=== PATIENT | female | born 1950 | race Caucasian/White ===

== ENCOUNTER 2017-12-14 02:48 | Observation (INO) ==
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
[2017-12-14 03:06] LABS: Baso % (Auto) 0.2 % (0.0-2.0); Eos # (Auto) 0.2 th/mm3 (0.0-0.4); Eos % (Auto) 2.4 % (0.0-4.0); Hemoglobin 9.9 gm/dL (11.6-15.3); Lymph # (Auto) 1.4 th/mm3 (1.0-4.8); Lymph % (Auto) 14.4 % (9.0-44.0); Mean Corpuscular HGB Conc 31.8 % (32.0-36.0); Mean Corpuscular Hemoglobin 29.6 pg (27.0-34.0); Mean Corpuscular Volume 93.1 fL (80.0-100.0); Mean Platelet Volume 7.9 fL (7.0-11.0); Mono # (Auto) 0.8 th/mm3 (0.0-0.9); Mono % (Auto) 8.5 % (0.0-8.0); Neut # (Auto) 7.4 th/mm3 (1.8-7.7); Neut % (Auto) 74.5 % (16.0-70.0); Platelet Count 282 th/mm3 (150-450); Red Blood Count 3.34 mil/mm3 (4.00-5.30); Red Cell Distribution Width 14.8 % (11.6-17.2); White Blood Count 9.8 th/mm3 (4.0-11.0)
[2017-12-14 03:16] LABS: Chloride 105 meq/L (98-107); Potassium 4.3 meq/L (3.5-5.1); Sodium 139 meq/L (136-145)
[2017-12-14 03:19] LABS: Albumin 2.8 g/dL (3.4-5.0); Anion Gap 7 meq/L (5-15); Calcium 7.8 mg/dL (8.5-10.1); Carbon Dioxide 27.5 meq/L (21.0-32.0); Glucose,Random 238 mg/dL (74-106); Magnesium 2.2 mg/dL (1.5-2.5)
[2017-12-14 03:20] LABS: Blood Urea Nitrogen 46 mg/dL (7-18)
[2017-12-14 03:22] LABS: Alanine Aminotransferase 17 U/L (10-53)
[2017-12-14 03:23] LABS: Aspartate Aminotransferase 13 U/L (15-37); Glomerular Filtration Rate 30 mL/min (>89)
[2017-12-14 03:24] LABS: Total Protein 6.7 g/dL (6.4-8.2)
[2017-12-14 03:25] LABS: Alkaline Phosphatase 96 U/L (45-117)
[2017-12-14] MEDS ORDERED: Prochlorperazine 25 MG Supp RECTAL PRN (03:46)
[2017-12-14] MEDS ORDERED: Acetaminophen 325 MG Tablet PO PRN (03:46)
[2017-12-14] MEDS ORDERED: Bisacodyl 10 MG Supp RECTAL PRN (03:46)
--- NOTE | 2017-12-14 04:35 | XR ---
EXAM DATE: 12/14/2017 2:50 AM EDT AGE/SEX: 67 years / Female INDICATIONS: Shortness of breath. CLINICAL DATA: This is the patient's initial encounter. Patient reports that signs and symptoms have been present for 1 day and indicates a pain score of 0/10. MEDICAL/SURGICAL HISTORY: Chronic obstructive pulmonary disease. None. COMPARISON: No prior exams available for comparison. FINDINGS: The cardiac silhouette is enlarged in transverse diameter. There are findings of congestive heart shree lure with interstitial and alveolar opacity bilaterally. A small right sided effusion is present. CONCLUSION: Cardiomegaly and findings of congestive heart failure. Electronically signed by: Logan Garcia MD 12/14/2017 4:33 AM EDT
[2017-12-14] MEDS ORDERED: MethylPREDNISolone Sod Succinate Inj 40 MG/ML Vial IV.PUSH SCH (10:00)
[2017-12-14] MEDS ORDERED: Dextrose 50% in Water 50 ML Vial IV.PUSH PRN (11:16)
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
[2017-12-14] MEDS: Insulin NovoLOG Aspart Correctional Sugar Inj SQ SCH ×3 (12:52→20:58)
[2017-12-14] MEDS: hydrALAZINE 25 MG Tablet PO PRN ×2 (14:28→20:56)
--- NOTE | 2017-12-14 15:49 | ECG ---
Date Performed: 12/14/2017 Time Performed: 03:13:20 PTAGE: 67 years EKG: SINUS TACHYCARDIA POSSIBLE ANTERIOR MYOCARDIAL INFARCTION ABNORMAL RHYTHM ECG NO PREVIOUS TRACING DOCTOR: Yossi Min Interpretating Date/Time 12/14/2017 15:47:36
--- NOTE | 2017-12-14 18:21 | ECHRPT ---
Indication: Shortness of Breath CONCLUSIONS Normal left ventricular size. Mild concentric left ventricular hypertrophy. The left ventricular systolic function is low normal with an estimated ejection fraction in the rang e of 50- 55%. The left atrial size is moderately dilated. Mild mitral valve regurgitation. Mitral annular calcification is present. Aortic valve sclerosis is present. There is mild tricuspid valve regurgitation. The estimated pulmonary arterial pressure is 56 mmHg. The inferior vena cava is mildly dilated. BP: / HR: Rhythm: MEASUREMENTS (Male / Female) Normal Values Technical Quality:Technically difficult study 2D ECHO LV Diastolic Diameter PLAX 4.6 cm 4.2 - 5.9 / 3.9 - 5.3 cm LV Systolic Diameter PLAX 3.6 cm IVS Diastolic Thickness 1.1 cm 0.6 - 1.0 / 0.6 - 0.9 cm LVPW Diastolic Thickness 1.2 cm 0.6 - 1.0 / 0.6 - 0.9 cm LV Relative Wall Thickness 0.5 RV Internal Dim ED PLAX 3.4 cm LVOT Diameter 1.9 cm Aortic Root Diameter 2.7 cm LA Systolic Diameter LX 4.9 cm 3.0 - 4.0 / 2.7 - 3.8 cm DOPPLER AV Peak Velocity 218.0 cm/s AV Peak Gradient 19.0 mmHg AV Mean Gradient 8.0 mmHg AV Velocity Time Integral 45.8 cm LVOT Peak Velocity 146.0 cm/s LVOT Peak Gradient 8.5 mmHg AV Area Cont Eq pk 1.9 cm Mitral E Point Velocity 173.0 cm/s Mitral A Point Velocity 89.1 cm/s Mitral E to A Ratio 1.9 LV E' Lateral Velocity 7.2 cm/s Mitral E to LV E' Lateral Ratio 24.0 LV E' Septal Velocity 8.5 cm/s Mitral E to LV E' Septal Ratio 20.4 TR Peak Velocity 339.0 cm/s TR Peak Gradient 46.0 mmHg Right Atrial Pressure 10.0 mmHg Pulmonary Artery Systolic Pressu 56.0 mmHg Right Ventricular Systolic Press 56.0 mmHg PV Peak Velocity 140.0 cm/s PV Peak Gradient 7.8 mmHg FINDINGS LEFT VENTRICLE Normal left ventricular size. Mild concentric left ventricular hypertrophy. The left ventricular systolic function is low normal with an estimated ejection fraction in the rang e of 50- 55%. RIGHT VENTRICLE Normal right ventricular size and systolic function. LEFT ATRIUM The left atrial size is moderately dilated. RIGHT ATRIUM The right atrial size is normal. ATRIAL SEPTUM Normal atrial septal thickness without atrial level shunting by limited color doppler interrogation. AORTA The aortic root and proximal ascending aorta are normal in size on limited imaging. MITRAL VALVE Mild mitral valve regurgitation. Severe mitral annular calcification is present. AORTIC VALVE Trileaflet aortic valve. Aortic valve sclerosis is present. TRICUSPID VALVE There is mild tricuspid valve regurgitation. The estimated pulmonary arterial pressure is 56 mmHg. PULMONARY VALVE No pulmonary valve regurgitation or stenosis. VESSELS The inferior vena cava is mildly dilated. PERICARDIUM No pericardial effusion. Melvin Colbert MD (Electronically Signed) Final Date:14 December 2017 18:20
[2017-12-14] MEDS: Metoprolol Tartrate 25 MG Tablet PO SCH (20:56)
[2017-12-14] MEDS: Insulin Detemir Inj 1,000 UNIT/10 ML Vial SQ SCH (20:57)
[2017-12-14] MEDS ORDERED: Potassium Chloride 10 MEQ ER Capsule PO SCH (21:00)
[2017-12-15 07:30] LABS: Baso % (Auto) 0.3 % (0.0-2.0); Eos # (Auto) 0.2 th/mm3 (0.0-0.4); Eos % (Auto) 1.8 % (0.0-4.0); Hematocrit 27.4 % (35.0-46.0); Hemoglobin 9.5 gm/dL (11.6-15.3); Lymph # (Auto) 1.4 th/mm3 (1.0-4.8); Lymph % (Auto) 16.2 % (9.0-44.0); Mean Corpuscular HGB Conc 34.7 % (32.0-36.0); Mean Corpuscular Hemoglobin 31.3 pg (27.0-34.0); Mean Corpuscular Volume 90.4 fL (80.0-100.0); Mean Platelet Volume 8.3 fL (7.0-11.0); Mono # (Auto) 0.7 th/mm3 (0.0-0.9); Mono % (Auto) 7.9 % (0.0-8.0); Neut # (Auto) 6.6 th/mm3 (1.8-7.7); Neut % (Auto) 73.8 % (16.0-70.0); Platelet Count 272 th/mm3 (150-450); Red Blood Count 3.03 mil/mm3 (4.00-5.30); Red Cell Distribution Width 15.2 % (11.6-17.2); White Blood Count 8.9 th/mm3 (4.0-11.0)
[2017-12-15 07:46] LABS: Chloride 106 meq/L (98-107); Potassium 4.7 meq/L (3.5-5.1); Sodium 141 meq/L (136-145)
[2017-12-15 07:50] LABS: Calcium 8.5 mg/dL (8.5-10.1)
[2017-12-15 07:51] LABS: Albumin 2.8 g/dL (3.4-5.0); Anion Gap 4 meq/L (5-15); Carbon Dioxide 31.1 meq/L (21.0-32.0)
[2017-12-15] MEDS: Insulin NovoLOG Aspart Correctional Sugar Inj SQ SCH ×4 (07:52→21:06)
[2017-12-15 08:05] LABS: Alanine Aminotransferase 13 U/L (10-53); Alkaline Phosphatase 77 U/L (45-117); Aspartate Aminotransferase 7 U/L (15-37); Blood Urea Nitrogen 50 mg/dL (7-18); Glomerular Filtration Rate 32 mL/min (>89); Glucose,Random 129 mg/dL (74-106); Total Protein 6.7 g/dL (6.4-8.2)
[2017-12-15] MEDS: Metoprolol Tartrate 25 MG Tablet PO SCH ×2 (08:25→21:08)
--- NOTE | 2017-12-15 09:53 | P.PNIM ---
Subjective Interval history: f/u; CHF in no acute distress. says that her sob and leg swelling has much improved. wants to go home today. no new complaints. Physical Exam Vital signs: Vital Signs 12/14/17 11:18 12/14/17 12:00 12/14/17 12:55 Temperature 98.1 F Pulse Rate 85 78 82 Respiratory Rate 16 15 28 H Blood Pressure 202/90 H 191/80 H Pulse Oximetry 99 97 12/14/17 13:00 12/14/17 13:20 12/14/17 14:00 Temperature Pulse Rate 82 78 80 Respiratory Rate 26 H 20 31 H Blood Pressure 190/75 H 166/87 H 196/91 H Pulse Oximetry 97 98 100 12/14/17 15:00 12/14/17 15:23 12/14/17 16:00 Temperature 97.8 F Pulse Rate 82 91 H Respiratory Rate 16 20 Blood Pressure 196/97 H Pulse Oximetry 98 97 12/14/17 20:00 12/14/17 20:30 12/15/17 00:00 Temperature 96.6 F L 96.9 F L Pulse Rate 84 83 72 Respiratory Rate 18 20 18 Blood Pressure 189/89 H 169/73 H Pulse Oximetry 98 97 95 12/15/17 07:51 Temperature Pulse Rate 78 Respiratory Rate 15 Blood Pressure Pulse Oximetry 94 L Intake & Output 12/14/17 12/15/17 12/15/17 18:59 06:59 18:59 Intake Total 960 / 960 120 / 120 Output Total 2850 / 2850 Balance -1890 / -1890 120 / 120 Weight 102.058 kg Intake: Oral 960 / 960 120 / 120 Output: Urine 2850 / 2850 Other: # Voids 4 Date of Last Bowel Movement 12/14/17 12/14/17 Weight On Admission 107.048 kg - Constitutional no acute distress - Routine Respiratory Exam Present: CTA bilaterally - Routine Cardiovascular Exam Present: RRR - Routine Abdominal Exam Present: soft - Routine Extremities Exam Comments: bilateral pedal edema. - Routine Neurological Exam Present: alert, oriented X3 Results - Labs CBC & Chem 7: 12/15/17 06:45 12/15/17 06:45 Laboratory Results - last 24 hr 12/14/17 12/14/17 12/14/17 12:25 16:32 20:49 CBC w Diff WBC RBC Hgb Hct MCV MCH MCHC RDW Plt Count MPV Neut % (Auto) Lymph % (Auto) [place] % (Auto) Eos % (Auto) Baso % (Auto) Neut # (Auto) Lymph # (Auto) [place] # (Auto) Eos # (Auto) Baso # (Auto) WBC Differential Differential Comment Sodium Potassium Chloride Carbon Dioxide Anion Gap BUN Creatinine Estimated GFR POC Glucose 439 H 352 H 217 H Random Glucose Calcium Total Bilirubin AST ALT Alkaline Phosphatase Total Protein Albumin 12/15/17 12/15/17 12/15/17 06:45 06:45 07:41 CBC w Diff Auto diff final WBC 8.9 RBC 3.03 L Hgb 9.5 L Hct 27.4 L MCV 90.4 MCH 31.3 MCHC 34.7 RDW 15.2 Plt Count 272 MPV 8.3 Neut % (Auto) 73.8 H Lymph % (Auto) 16.2 [place] % (Auto) 7.9 Eos % (Auto) 1.8 Baso % (Auto) 0.3 Neut # (Auto) 6.6 Lymph # (Auto) 1.4 [place] # (Auto) 0.7 Eos # (Auto) 0.2 Baso # (Auto) 0.0 WBC Differential . Differential Comment . Sodium 141 Potassium 4.7 Chloride 106 Carbon Dioxide 31.1 Anion Gap 4 L BUN 50 H Creatinine 1.60 H Estimated GFR 32 L POC Glucose 161 H Random Glucose 129 H D Calcium 8.5 Total Bilirubin 0.4 AST 7 L ALT 13 Alkaline Phosphatase 77 Total Protein 6.7 Albumin 2.8 L Assessment and Plan - Assessment (1) Acute exacerbation of congestive heart failure Code(s): I50.9 - Heart failure, unspecified Status: Acute - Plan Acute diastolic CHF Chest x-ray noted with finding of Cardiomegaly and findings of congestive heart failure Patient is currently on Lasix 20 mg IV every 12 hours, add potassium replacement echo with EF 50-55% with mild LVH Hypertension resume lisinopril Diabetes type 2 Labile Blood Glucose resume oral antihyperglycemic agents upon discharge. hemoglobin A1c pending. Chronic kidney disease stage III Continue to monitor BUN and creatinine COPD- with no exacerbation patient has nebulizer at home and is on home oxygen. DVT prophylaxis:B-SCD Discharge Planning: possible later this evening if stable with improved BP.
[2017-12-15] MEDS ORDERED: Lisinopril 10 MG Tablet PO SCH (10:00)
[2017-12-15] MEDS: hydrALAZINE 25 MG Tablet PO PRN (16:43)
[2017-12-15 17:57] LABS: Hemoglobin A1c 5.7 % (4.3-6.0)
[2017-12-15] MEDS: Insulin Detemir Inj 1,000 UNIT/10 ML Vial SQ SCH (21:08)
[2017-12-16 00:46] VITALS: BP 108/58; TEMP 96
[2017-12-16 06:21] VITALS: PULSE 59; RESP 18; O2SAT 99
--- NOTE | 2017-12-16 07:44 | P.PNIM ---
Subjective Interval history: f/u; CHF in no acute distress. says that sob is improving. no new complaints. BP trend noted. Physical Exam Vital signs: Vital Signs 12/15/17 07:51 12/15/17 08:00 12/15/17 12:00 Temperature 98.6 F 97 F L Pulse Rate 78 72 71 Respiratory Rate 15 20 20 Blood Pressure 155/67 H 156/70 H Pulse Oximetry 94 L 97 93 L 12/15/17 16:00 12/15/17 19:53 12/15/17 20:00 Temperature 96.8 F L 97.9 F Pulse Rate 66 74 73 Respiratory Rate 20 16 20 Blood Pressure 174/72 H 152/85 H Pulse Oximetry 92 L 92 L 92 L 12/16/17 00:00 12/16/17 06:19 Temperature 96 F L Pulse Rate 62 59 L Respiratory Rate 20 18 Blood Pressure 108/58 L Pulse Oximetry 98 99 Intake & Output 12/15/17 12/16/17 12/16/17 18:59 06:59 18:59 Intake Total 480 / 480 490 / 490 Balance 480 / 480 490 / 490 Weight 103.1 kg Intake: Oral 480 / 480 490 / 490 Other: # Voids 4 7 Date of Last Bowel Movement 12/14/17 # Bowel Movements 0 - Constitutional no acute distress - Routine Respiratory Exam Present: CTA bilaterally - Routine Cardiovascular Exam Present: RRR - Routine Abdominal Exam Present: soft - Routine Extremities Exam Comments: bilateral pedal edema. - Routine Neurological Exam Present: alert, oriented X3 Results - Labs CBC & Chem 7: 12/15/17 06:45 12/15/17 06:45 Laboratory Results - last 24 hr 12/15/17 12/15/17 12/15/17 06:45 06:45 06:45 Sodium 141 Potassium 4.7 Chloride 106 Carbon Dioxide 31.1 Anion Gap 4 L BUN 50 H Creatinine 1.60 H Estimated GFR 32 L POC Glucose Random Glucose 129 H D Hemoglobin A1c 5.7 Calcium 8.5 Total Bilirubin 0.4 AST 7 L ALT 13 Alkaline Phosphatase 77 B-Natriuretic Peptide 1035 H Total Protein 6.7 Albumin 2.8 L 12/15/17 12/15/17 12/15/17 07:41 11:16 16:45 Sodium Potassium Chloride Carbon Dioxide Anion Gap BUN Creatinine Estimated GFR POC Glucose 161 H 198 H 184 H Random Glucose Hemoglobin A1c Calcium Total Bilirubin AST ALT Alkaline Phosphatase B-Natriuretic Peptide Total Protein Albumin 12/15/17 21:06 Sodium Potassium Chloride Carbon Dioxide Anion Gap BUN Creatinine Estimated GFR POC Glucose 130 H Random Glucose Hemoglobin A1c Calcium Total Bilirubin AST ALT Alkaline Phosphatase B-Natriuretic Peptide Total Protein Albumin - Procedures none. Assessment and Plan - Assessment (1) Acute exacerbation of congestive heart failure Code(s): I50.9 - Heart failure, unspecified Status: Acute - Plan Acute diastolic CHF- improved. Chest x-ray noted with finding of Cardiomegaly and findings of congestive heart failure Patient is currently on Lasix 20 mg IV every 12 hours, add potassium replacement echo with EF 50-55% with mild LVH Hypertension- BP better resumed lisinopril Diabetes type 2 Labile Blood Glucose resume oral antihyperglycemic agents upon discharge. hemoglobin A1c 5.7. Chronic kidney disease stage III Continue to monitor BUN and creatinine COPD- with no exacerbation patient has nebulizer at home and is on home oxygen. Anemia- NCNC- f/u as outpatient and this was d/w the patient prior to discharge. DVT prophylaxis:B-SCD Discharge Planning: dc home today. f/u;pcp. see med list. d/w the patient. case management for [facility].
--- NOTE | 2017-12-16 07:45 | P.DCO ---
- Home Health Nursing Order: Medical education, Signs/symptoms of disease process, CHF education, Medication education-adverse effect, Nursing assessment with vital signs - Case Management Consult Yes - Certification I have seen patient Marcela Carlson on 12/16/17. My clinical findings support the need for the requested home health care services because: Patient has SOB I certify that my clinical findings support that this patient is homebound because: Poor cardiac reserve
--- NOTE | 2017-12-16 07:48 | P.DS ---
Date of admission: 12/14/17 03:46 Primary care physician: No Primary Care Physician Brief History from admission: 67-year-old female with history of congestive heart failure, diabetes type 2, tobacco abuse presented to the ED yesterday for evaluation of worsening shortness of breath over the past several days, as well as orthopnea. Patient also reported dry cough. She states that 3 weeks ago she was prescribed Lasix by her direct sales representative and is currently on 20 mg daily. However over the past several days patient states she has been quite dyspneic at night requiring more pillows. She denies any chest pain. Occasionally she has been wheezing but no febrile episode. She was prescribed oxygen's as needed about a month ago. Patient smokes 1 pack/day. In the ED she was found to have elevated BNP of 555. She has no GI bleed. DS: Diagnosis - Discharge Diagnosis (1) Acute exacerbation of congestive heart failure Status: Acute DS: Medications - Discharge Medications Prescriptions: lisinopril [Prinivil] 10 mg PO DAILY 30 Days #30 tab potassium chloride 20 meq PO DAILY 30 Days #60 cap DS: Summary Hospital Course: patient was admitted with acute diastolic CHF. she was started on IV diuretics. her sob improved. she will continue on her home lasix -however the dose will be increased to 40 mg daily. she has anemia that needs to be followed up as outpatient ans this was d/w the patient. she will be discharged home with HHC and f/u with her pcp. - Time Spent with Patient Total time spent providing and/or coordinating discharge services: Less than 30 minutes - Quality: VTE Deep Vein Thrombosis/Pulmonary Embolism Present on Admission: No Exam Vital signs: Vital Signs 12/15/17 07:51 12/15/17 08:00 12/15/17 12:00 Temperature 98.6 F 97 F L Pulse Rate 78 72 71 Respiratory Rate 15 20 20 Blood Pressure 155/67 H 156/70 H Pulse Oximetry 94 L 97 93 L 12/15/17 16:00 12/15/17 19:53 12/15/17 20:00 Temperature 96.8 F L 97.9 F Pulse Rate 66 74 73 Respiratory Rate 20 16 20 Blood Pressure 174/72 H 152/85 H Pulse Oximetry 92 L 92 L 92 L 12/16/17 00:00 12/16/17 06:19 Temperature 96 F L Pulse Rate 62 59 L Respiratory Rate 20 18 Blood Pressure 108/58 L Pulse Oximetry 98 99 Intake & Output 12/15/17 12/16/17 12/16/17 18:59 06:59 18:59 Intake Total 480 / 480 490 / 490 Balance 480 / 480 490 / 490 Weight 103.1 kg Intake: Oral 480 / 480 490 / 490 Other: # Voids 4 7 Date of Last Bowel Movement 12/14/17 # Bowel Movements 0 - Constitutional no acute distress - Routine Respiratory Exam Present: CTA bilaterally - Routine Cardiovascular Exam Present: RRR - Routine Abdominal Exam Present: soft - Routine Extremities Exam Comments: bilateral pedal edema. - Routine Neurological Exam Present: alert, oriented X3 Results Procedures completed during hospitalization: none. Labs on day of discharge: Labs from last 24 hours 12/16/17 12/15/17 12/15/17 07:42 21:06 16:45 Sodium Potassium Chloride Carbon Dioxide Anion Gap BUN Creatinine Estimated GFR POC Glucose 110 130 H 184 H Random Glucose Hemoglobin A1c Calcium Total Bilirubin AST ALT Alkaline Phosphatase B-Natriuretic Peptide Total Protein Albumin 12/15/17 12/15/17 12/15/17 11:16 06:45 06:45 Sodium 141 Potassium 4.7 Chloride 106 Carbon Dioxide 31.1 Anion Gap 4 L BUN 50 H Creatinine 1.60 H Estimated GFR 32 L POC Glucose 198 H Random Glucose 129 H D Hemoglobin A1c Calcium 8.5 Total Bilirubin 0.4 AST 7 L ALT 13 Alkaline Phosphatase 77 B-Natriuretic Peptide 1035 H Total Protein 6.7 Albumin 2.8 L 12/15/17 06:45 Sodium Potassium Chloride Carbon Dioxide Anion Gap BUN Creatinine Estimated GFR POC Glucose Random Glucose Hemoglobin A1c 5.7 Calcium Total Bilirubin AST ALT Alkaline Phosphatase B-Natriuretic Peptide Total Protein Albumin - Impressions ITS Impressions Chest X-Ray 12/14/17 02:50 CONCLUSION: Cardiomegaly and findings of congestive heart failure. Discharge Plan - Discharge Disposition Patient Disposition: Discharge Home - Discharge Condition Condition: Stable - Discharge Order Discharge Orders: Discharge Order (Routine); Ordered 12/16/17 Ordered By: Levi Brunson - Physicians Team Primary Care Provider: Primary Care Benjamin,Janice Attending Provider: Levi Brunson
== END 2017-12-16 09:20 | disposition home or self-care (01) ==
LOC: PHED 02:48 → PHEDA 02:48 → PHICU 05:18 → PH3 14:59
PROVIDERS: ADMIT Internal Medicine; ATTEND Internal Medicine
DX: I50.31 Acute diastolic (congestive) heart failure; D64.9 Anemia, unspecified; Z89.412 Acquired absence of left great toe; F17.200 Nicotine dependence, unspecified, uncomplicated; Z79.4 Long term (current) use of insulin; E83.51 Hypocalcemia; I13.0 Hypertensive heart and chronic kidney disease with heart failure and stage 1 through stage 4 chronic kidney disease, or unspecified chronic kidney disease; J44.1 Chronic obstructive pulmonary disease with (acute) exacerbation; E11.22 Type 2 diabetes mellitus with diabetic chronic kidney disease; Z99.81 Dependence on supplemental oxygen; N18.3 Chronic kidney disease, stage 3 (moderate)

== ENCOUNTER 2018-01-10 05:35 | Inpatient (IN) ==
--- NOTE | 2018-01-10 05:57 | ED ---
HPI General Chief Complaint: Respiratory Symptoms Stated Complaint: SOB Time Seen by Provider: 01/10/18 05:42 History of Present Illness HPI Narrative: Patient is a 67-year-old female who is got a history of COPD CHF renal insufficiency hypertension. Diabetes type 2, tobacco abuse presented to the ED yesterday for evaluation of worsening shortness of breath over the past several days, SHE WAS HERE LAST NIGHT WITH [facility] She is a smoker she comes to the ER twice in the last 12 hours and 3 times last 36 hours. She keeps coming back for shortness of breath she has a history of CHF chest x-ray shows some mild edema she her BNP has been in the 700s now she is returning after leaving only 3 hours earlier She was feeling much better after having been given p.o. Lasix and a 2.5 mg of Valium to help her relax .Her she felt good she went home she fell asleep she woke up short of breath , coughing comes back to the ER immediately . She says she just waoke up feeling completely short of breath panics comes in. She takes Lasix 40 mg p.o. daily that is not alleviating her symptoms or progressively retaining fluid . Dr. Alcala is her doctor she will need a EKG troponin BNP some diuresis with IV Lasix and possible admission Related Data Home Medications Medication Instructions Recorded Confirmed albuterol sulfate 1.25 mg INHALATION Q4-6H PRN MDD 4 01/04/18 01/10/18 aspirin [Aspirin Low Dose] 81 mg PO DAILY 01/04/18 01/10/18 atorvastatin 40 mg PO DAILY 01/04/18 01/10/18 buprenorphine-naloxone [Suboxone] 1 film SUBLINGUAL DAILY 01/04/18 01/10/18 carvedilol 3.125 mg PO BID 01/04/18 01/10/18 gabapentin 100 mg PO DAILY 01/04/18 01/10/18 Previous Rx's Medication Instructions Recorded nebulizer and compressor #1 each 01/07/18 diazepam [Valium] 2 mg PO TID PRN #14 tab 01/10/18 albuterol sulfate [Ventolin HFA] 2 puff INHALATION Q6H PRN #1 g 01/13/18 amlodipine [Norvasc] 10 mg PO DAILY #30 tab 01/13/18 budesonide-formoterol [Symbicort] 2 puff INHALATION BID #1 inhaler 01/13/18 empagliflozin [Jardiance] 10 mg PO DAILY #30 tab 01/13/18 furosemide [Lasix] 40 mg PO BID #60 tab 01/13/18 glipizide 5 mg PO DAILY #30 tab 01/13/18 hydralazine 50 mg PO Q8HR #90 tab 01/13/18 prednisone 10 mg PO DAILY #17 tab 01/13/18 Allergies Allergy/AdvReac Type Severity Reaction Status Date / Time No Known Allergies Allergy Verified 01/10/18 01:32 Review of Systems ROS: all other systems reviewed are negative [facility] Social History Social History Substance History: No History of Abuse Second Hand Smoke Exposure: Yes Smoking Status: Former smoker Tobacco Type: Cigarettes How Often Do You Have a Drink Containing Alcohol: Never Recent Travel in [facility] within the Last 8 Weeks: No Recent Out of Country Travel within the Last 8 Weeks: No Immunization History Tetanus Immunization: Unsure Exam Narrative Exam Narrative: GENERAL: Patient smells of cigarette smoke. Coughing SKIN: Warm and dry. HEAD: Atraumatic. Normocephalic. EYES: Pupils equal and round. No scleral icterus. No injection or drainage. ENT: No nasal bleeding or discharge. Mucous membranes pink and moist. NECK: Trachea midline. No JVD. CARDIOVASCULAR: Regular rate and rhythm. RESPIRATORY: No accessory muscle use. Coarse breath sounds bilaterally lower lungs and more wheezy Tory on the upper lungs bilateral GASTROINTESTINAL: Abdomen soft, non-tender, nondistended. Hepatic and splenic margins not palpable. MUSCULOSKELETAL: Extremities without clubbing, cyanosis, or edema. No obvious deformities. NEUROLOGICAL: Awake and alert. No obvious cranial nerve deficits. Motor grossly within normal limits. Five out of 5 muscle strength in the arms and legs. Normal speech. PSYCHIATRIC: Appropriate mood and affect; insight and judgment normal. Course Initial Documented Vital Signs Temperature 98.5 F 01/10/18 05:41 Pulse Rate 82 01/10/18 05:41 Respiratory Rate 22 01/10/18 05:41 Blood Pressure 203/102 H 01/10/18 05:41 Pulse Oximetry 94 L 01/10/18 05:41 Last Documented Vital Signs Temperature 96.5 F L 01/13/18 11:13 Pulse Rate 74 01/13/18 11:13 Respiratory Rate 20 01/13/18 11:13 Blood Pressure 143/74 H 01/13/18 11:13 Pulse Oximetry 100 01/13/18 11:13 Medical Decision Making MDM Narrative Medical Screen Exam Complete: Yes Emergency Medical Condition: Yes Medical Records Medical records reviewed: Yes I reviewed the patient's medical records. Lab Data Lab results reviewed: Yes I reviewed the patient's lab results. Result diagrams: 01/11/18 08:10 01/13/18 05:08 Lab Results 01/10/18 01/10/18 01/10/18 Range/Units 06:00 06:00 06:00 CBC w Diff Slide review pending WBC 12.6 H (4.0-11.0) th/mm3 RBC 3.31 L (4.00-5.30) mil/mm3 Hgb 9.5 L (11.6-15.3) gm/dL Hct 29.6 L (35.0-46.0) % MCV 89.5 (80.0-100.0) fL MCH 28.8 (27.0-34.0) pg MCHC 32.2 (32.0-36.0) % RDW 13.7 (11.6-17.2) % Plt Count 351 (150-450) th/mm3 MPV 8.4 (7.0-11.0) fL Neut % (Auto) 83.7 H (16.0-70.0) % Lymph % (Auto) 11.8 (9.0-44.0) % [place] % (Auto) 3.2 (0.0-8.0) % Eos % (Auto) 0.9 (0.0-4.0) % Baso % (Auto) 0.4 (0.0-2.0) % Neut # (Auto) 10.5 H (1.8-7.7) th/mm3 Lymph # (Auto) 1.5 (1.0-4.8) th/mm3 [place] # (Auto) 0.4 (0.0-0.9) th/mm3 Eos # (Auto) 0.1 (0.0-0.4) th/mm3 Baso # (Auto) 0.1 (0.0-0.2) th/mm3 WBC Differential . Diff Scan Auto diff confirmed Differential Comment . Platelet Estimate Normal (Normal) Platelet Morphology Normal (Normal) RBC Morphology Normal (Normal) Sodium 136 (136-145) meq/L Potassium 5.1 (3.5-5.1) meq/L Chloride 102 (98-107) meq/L Carbon Dioxide 27.8 (21.0-32.0) meq/L Anion Gap 6 (5-15) meq/L BUN 65 H (7-18) mg/dL Creatinine 2.00 H (0.50-1.00) mg/dL Estimated GFR 25 L (>89) mL/min POC Glucose (68-110) mg/dl Random Glucose 304 H (74-106) mg/dL Hemoglobin A1c (4.3-6.0) % Calcium 8.1 L (8.5-10.1) mg/dL Magnesium (1.5-2.5) mg/dL Total Bilirubin 0.2 (0.2-1.0) mg/dL AST 13 L (15-37) U/L ALT 25 (10-53) U/L Alkaline Phosphatase 129 H (45-117) U/L Troponin I Less than 0.02 L (0.02-0.05) ng/mL B-Natriuretic Peptide 726 H (0-100) pg/mL Total Protein 6.5 (6.4-8.2) g/dL Albumin 2.8 L (3.4-5.0) g/dL Ur Collection Type Urine Color (Yellw/Straw) Urine Clarity (Clear) Urine pH (5.0-8.5) Ur Specific [place] (1.002-1.035) Urine Protein (Neg-Trace) mg/dL Urine Glucose (UA) (Negative) mg/dL Urine Ketones (Negative) mg/dL Urine Occult Blood (Negative) Urine Nitrate (Negative) Urine Bilirubin (Negative) Urine Urobilinogen (Less than 2) mg/dL Ur Leukocyte Esterase (Negative) Urine RBC (0-3) /hpf Urine WBC (0-5) /hpf Ur Squamous Epith Cells (0-5) /hpf Micro UA Comment Ur Microscopic Review Urine Culture Comments 01/10/18 01/10/18 01/10/18 Range/Units 06:00 06:13 08:22 CBC w Diff WBC (4.0-11.0) th/mm3 RBC (4.00-5.30) mil/mm3 Hgb (11.6-15.3) gm/dL Hct (35.0-46.0) % MCV (80.0-100.0) fL MCH (27.0-34.0) pg MCHC (32.0-36.0) % RDW (11.6-17.2) % Plt Count (150-450) th/mm3 MPV (7.0-11.0) fL Neut % (Auto) (16.0-70.0) % Lymph % (Auto) (9.0-44.0) % [place] % (Auto) (0.0-8.0) % Eos % (Auto) (0.0-4.0) % Baso % (Auto) (0.0-2.0) % Neut # (Auto) (1.8-7.7) th/mm3 Lymph # (Auto) (1.0-4.8) th/mm3 [place] # (Auto) (0.0-0.9) th/mm3 Eos # (Auto) (0.0-0.4) th/mm3 Baso # (Auto) (0.0-0.2) th/mm3 WBC Differential Diff Scan Differential Comment Platelet Estimate (Normal) Platelet Morphology (Normal) RBC Morphology (Normal) Sodium (136-145) meq/L Potassium (3.5-5.1) meq/L Chloride (98-107) meq/L Carbon Dioxide (21.0-32.0) meq/L Anion Gap (5-15) meq/L BUN (7-18) mg/dL Creatinine (0.50-1.00) mg/dL Estimated GFR (>89) mL/min POC Glucose 338 H 299 H (68-110) mg/dl Random Glucose (74-106) mg/dL Hemoglobin A1c (4.3-6.0) % Calcium (8.5-10.1) mg/dL Magnesium (1.5-2.5) mg/dL Total Bilirubin (0.2-1.0) mg/dL AST (15-37) U/L ALT (10-53) U/L Alkaline Phosphatase (45-117) U/L Troponin I Cancelled (0.02-0.05) ng/mL B-Natriuretic Peptide (0-100) pg/mL Total Protein (6.4-8.2) g/dL Albumin (3.4-5.0) g/dL Ur Collection Type Urine Color (Yellw/Straw) Urine Clarity (Clear) Urine pH (5.0-8.5) Ur Specific [place] (1.002-1.035) Urine Protein (Neg-Trace) mg/dL Urine Glucose (UA) (Negative) mg/dL Urine Ketones (Negative) mg/dL Urine Occult Blood (Negative) Urine Nitrate (Negative) Urine Bilirubin (Negative) Urine Urobilinogen (Less than 2) mg/dL Ur Leukocyte Esterase (Negative) Urine RBC (0-3) /hpf Urine WBC (0-5) /hpf Ur Squamous Epith Cells (0-5) /hpf Micro UA Comment Ur Microscopic Review Urine Culture Comments 01/10/18 01/10/18 01/10/18 Range/Units 11:14 16:52 20:09 CBC w Diff WBC (4.0-11.0) th/mm3 RBC (4.00-5.30) mil/mm3 Hgb (11.6-15.3) gm/dL Hct (35.0-46.0) % MCV (80.0-100.0) fL MCH (27.0-34.0) pg MCHC (32.0-36.0) % RDW (11.6-17.2) % Plt Count (150-450) th/mm3 MPV (7.0-11.0) fL Neut % (Auto) (16.0-70.0) % Lymph % (Auto) (9.0-44.0) % [place] % (Auto) (0.0-8.0) % Eos % (Auto) (0.0-4.0) % Baso % (Auto) (0.0-2.0) % Neut # (Auto) (1.8-7.7) th/mm3 Lymph # (Auto) (1.0-4.8) th/mm3 [place] # (Auto) (0.0-0.9) th/mm3 Eos # (Auto) (0.0-0.4) th/mm3 Baso # (Auto) (0.0-0.2) th/mm3 WBC Differential Diff Scan Differential Comment Platelet Estimate (Normal) Platelet Morphology (Normal) RBC Morphology (Normal) Sodium (136-145) meq/L Potassium (3.5-5.1) meq/L Chloride (98-107) meq/L Carbon Dioxide (21.0-32.0) meq/L Anion Gap (5-15) meq/L BUN (7-18) mg/dL Creatinine (0.50-1.00) mg/dL Estimated GFR (>89) mL/min POC Glucose 305 H 194 H 311 H (68-110) mg/dl Random Glucose (74-106) mg/dL Hemoglobin A1c (4.3-6.0) % Calcium (8.5-10.1) mg/dL Magnesium (1.5-2.5) mg/dL Total Bilirubin (0.2-1.0) mg/dL AST (15-37) U/L ALT (10-53) U/L Alkaline Phosphatase (45-117) U/L Troponin I (0.02-0.05) ng/mL B-Natriuretic Peptide (0-100) pg/mL Total Protein (6.4-8.2) g/dL Albumin (3.4-5.0) g/dL Ur Collection Type Urine Color (Yellw/Straw) Urine Clarity (Clear) Urine pH (5.0-8.5) Ur Specific [place] (1.002-1.035) Urine Protein (Neg-Trace) mg/dL Urine Glucose (UA) (Negative) mg/dL Urine Ketones (Negative) mg/dL Urine Occult Blood (Negative) Urine Nitrate (Negative) Urine Bilirubin (Negative) Urine Urobilinogen (Less than 2) mg/dL Ur Leukocyte Esterase (Negative) Urine RBC (0-3) /hpf Urine WBC (0-5) /hpf Ur Squamous Epith Cells (0-5) /hpf Micro UA Comment Ur Microscopic Review Urine Culture Comments 01/11/18 01/11/18 01/11/18 Range/Units 07:39 08:10 08:10 CBC w Diff Auto diff final WBC 8.4 (4.0-11.0) th/mm3 RBC 3.35 L (4.00-5.30) mil/mm3 Hgb 10.3 L (11.6-15.3) gm/dL Hct 29.6 L (35.0-46.0) % MCV 88.2 (80.0-100.0) fL MCH 30.6 (27.0-34.0) pg MCHC 34.7 (32.0-36.0) % RDW 14.1 (11.6-17.2) % Plt Count 303 (150-450) th/mm3 MPV 8.6 (7.0-11.0) fL Neut % (Auto) 88.8 H (16.0-70.0) % Lymph % (Auto) 9.8 (9.0-44.0) % [place] % (Auto) 1.2 (0.0-8.0) % Eos % (Auto) 0.1 (0.0-4.0) % Baso % (Auto) 0.1 (0.0-2.0) % Neut # (Auto) 7.5 (1.8-7.7) th/mm3 Lymph # (Auto) 0.8 L (1.0-4.8) th/mm3 [place] # (Auto) 0.1 (0.0-0.9) th/mm3 Eos # (Auto) 0.0 (0.0-0.4) th/mm3 Baso # (Auto) 0.0 (0.0-0.2) th/mm3 WBC Differential . Diff Scan Differential Comment . Platelet Estimate (Normal) Platelet Morphology (Normal) RBC Morphology (Normal) Sodium 136 (136-145) meq/L Potassium 5.5 H (3.5-5.1) meq/L Chloride 102 (98-107) meq/L Carbon Dioxide 27.5 (21.0-32.0) meq/L Anion Gap 7 (5-15) meq/L BUN 70 H (7-18) mg/dL Creatinine 1.70 H (0.50-1.00) mg/dL Estimated GFR 30 L (>89) mL/min POC Glucose 332 H (68-110) mg/dl Random Glucose 329 H (74-106) mg/dL Hemoglobin A1c (4.3-6.0) % Calcium 8.1 L (8.5-10.1) mg/dL Magnesium (1.5-2.5) mg/dL Total Bilirubin (0.2-1.0) mg/dL AST (15-37) U/L ALT (10-53) U/L Alkaline Phosphatase (45-117) U/L Troponin I (0.02-0.05) ng/mL B-Natriuretic Peptide (0-100) pg/mL Total Protein (6.4-8.2) g/dL Albumin (3.4-5.0) g/dL Ur Collection Type Urine Color (Yellw/Straw) Urine Clarity (Clear) Urine pH (5.0-8.5) Ur Specific [place] (1.002-1.035) Urine Protein (Neg-Trace) mg/dL Urine Glucose (UA) (Negative) mg/dL Urine Ketones (Negative) mg/dL Urine Occult Blood (Negative) Urine Nitrate (Negative) Urine Bilirubin (Negative) Urine Urobilinogen (Less than 2) mg/dL Ur Leukocyte Esterase (Negative) Urine RBC (0-3) /hpf Urine WBC (0-5) /hpf Ur Squamous Epith Cells (0-5) /hpf Micro UA Comment Ur Microscopic Review Urine Culture Comments 01/11/18 01/11/18 01/11/18 Range/Units 08:10 11:40 11:45 CBC w Diff WBC (4.0-11.0) th/mm3 RBC (4.00-5.30) mil/mm3 Hgb (11.6-15.3) gm/dL Hct (35.0-46.0) % MCV (80.0-100.0) fL MCH (27.0-34.0) pg MCHC (32.0-36.0) % RDW (11.6-17.2) % Plt Count (150-450) th/mm3 MPV (7.0-11.0) fL Neut % (Auto) (16.0-70.0) % Lymph % (Auto) (9.0-44.0) % [place] % (Auto) (0.0-8.0) % Eos % (Auto) (0.0-4.0) % Baso % (Auto) (0.0-2.0) % Neut # (Auto) (1.8-7.7) th/mm3 Lymph # (Auto) (1.0-4.8) th/mm3 [place] # (Auto) (0.0-0.9) th/mm3 Eos # (Auto) (0.0-0.4) th/mm3 Baso # (Auto) (0.0-0.2) th/mm3 WBC Differential Diff Scan Differential Comment Platelet Estimate (Normal) Platelet Morphology (Normal) RBC Morphology (Normal) Sodium (136-145) meq/L Potassium (3.5-5.1) meq/L Chloride (98-107) meq/L Carbon Dioxide (21.0-32.0) meq/L Anion Gap (5-15) meq/L BUN (7-18) mg/dL Creatinine (0.50-1.00) mg/dL Estimated GFR (>89) mL/min POC Glucose 381 H (68-110) mg/dl Random Glucose (74-106) mg/dL Hemoglobin A1c 6.5 H (4.3-6.0) % Calcium (8.5-10.1) mg/dL Magnesium (1.5-2.5) mg/dL Total Bilirubin (0.2-1.0) mg/dL AST (15-37) U/L ALT (10-53) U/L Alkaline Phosphatase (45-117) U/L Troponin I (0.02-0.05) ng/mL B-Natriuretic Peptide (0-100) pg/mL Total Protein (6.4-8.2) g/dL Albumin (3.4-5.0) g/dL Ur Collection Type Clean catch Urine Color Yellow (Yellw/Straw) Urine Clarity Clear (Clear) Urine pH 5.5 (5.0-8.5) Ur Specific [place] 1.020 (1.002-1.035) Urine Protein 100 H (Neg-Trace) mg/dL Urine Glucose (UA) 500 H (Negative) mg/dL Urine Ketones Negative (Negative) mg/dL Urine Occult Blood Moderate H (Negative) Urine Nitrate Negative (Negative) Urine Bilirubin Negative (Negative) Urine Urobilinogen 0.2 (Less than 2) mg/dL Ur Leukocyte Esterase Negative (Negative) Urine RBC 4-15 H (0-3) /hpf Urine WBC 0-5 (0-5) /hpf Ur Squamous Epith Cells 0-5 (0-5) /hpf Micro UA Comment Culture not ind Ur Microscopic Review Microscopic reviewed Urine Culture Comments Culture not ind 01/11/18 01/11/18 01/12/18 Range/Units 16:32 20:53 07:36 CBC w Diff WBC (4.0-11.0) th/mm3 RBC (4.00-5.30) mil/mm3 Hgb (11.6-15.3) gm/dL Hct (35.0-46.0) % MCV (80.0-100.0) fL MCH (27.0-34.0) pg MCHC (32.0-36.0) % RDW (11.6-17.2) % Plt Count (150-450) th/mm3 MPV (7.0-11.0) fL Neut % (Auto) (16.0-70.0) % Lymph % (Auto) (9.0-44.0) % [place] % (Auto) (0.0-8.0) % Eos % (Auto) (0.0-4.0) % Baso % (Auto) (0.0-2.0) % Neut # (Auto) (1.8-7.7) th/mm3 Lymph # (Auto) (1.0-4.8) th/mm3 [place] # (Auto) (0.0-0.9) th/mm3 Eos # (Auto) (0.0-0.4) th/mm3 Baso # (Auto) (0.0-0.2) th/mm3 WBC Differential Diff Scan Differential Comment Platelet Estimate (Normal) Platelet Morphology (Normal) RBC Morphology (Normal) Sodium (136-145) meq/L Potassium (3.5-5.1) meq/L Chloride (98-107) meq/L Carbon Dioxide (21.0-32.0) meq/L Anion Gap (5-15) meq/L BUN (7-18) mg/dL Creatinine (0.50-1.00) mg/dL Estimated GFR (>89) mL/min POC Glucose 466 H* 459 H* 347 H (68-110) mg/dl Random Glucose (74-106) mg/dL Hemoglobin A1c (4.3-6.0) % Calcium (8.5-10.1) mg/dL Magnesium (1.5-2.5) mg/dL Total Bilirubin (0.2-1.0) mg/dL AST (15-37) U/L ALT (10-53) U/L Alkaline Phosphatase (45-117) U/L Troponin I (0.02-0.05) ng/mL B-Natriuretic Peptide (0-100) pg/mL Total Protein (6.4-8.2) g/dL Albumin (3.4-5.0) g/dL Ur Collection Type Urine Color (Yellw/Straw) Urine Clarity (Clear) Urine pH (5.0-8.5) Ur Specific [place] (1.002-1.035) Urine Protein (Neg-Trace) mg/dL Urine Glucose (UA) (Negative) mg/dL Urine Ketones (Negative) mg/dL Urine Occult Blood (Negative) Urine Nitrate (Negative) Urine Bilirubin (Negative) Urine Urobilinogen (Less than 2) mg/dL Ur Leukocyte Esterase (Negative) Urine RBC (0-3) /hpf Urine WBC (0-5) /hpf Ur Squamous Epith Cells (0-5) /hpf Micro UA Comment Ur Microscopic Review Urine Culture Comments 01/12/18 01/12/18 01/12/18 Range/Units 11:36 15:20 16:59 CBC w Diff WBC (4.0-11.0) th/mm3 RBC (4.00-5.30) mil/mm3 Hgb (11.6-15.3) gm/dL Hct (35.0-46.0) % MCV (80.0-100.0) fL MCH (27.0-34.0) pg MCHC (32.0-36.0) % RDW (11.6-17.2) % Plt Count (150-450) th/mm3 MPV (7.0-11.0) fL Neut % (Auto) (16.0-70.0) % Lymph % (Auto) (9.0-44.0) % [place] % (Auto) (0.0-8.0) % Eos % (Auto) (0.0-4.0) % Baso % (Auto) (0.0-2.0) % Neut # (Auto) (1.8-7.7) th/mm3 Lymph # (Auto) (1.0-4.8) th/mm3 [place] # (Auto) (0.0-0.9) th/mm3 Eos # (Auto) (0.0-0.4) th/mm3 Baso # (Auto) (0.0-0.2) th/mm3 WBC Differential Diff Scan Differential Comment Platelet Estimate (Normal) Platelet Morphology (Normal) RBC Morphology (Normal) Sodium 136 (136-145) meq/L Potassium 5.0 (3.5-5.1) meq/L Chloride 101 (98-107) meq/L Carbon Dioxide 28.3 (21.0-32.0) meq/L Anion Gap 7 (5-15) meq/L BUN 84 H (7-18) mg/dL Creatinine 1.90 H (0.50-1.00) mg/dL Estimated GFR 27 L (>89) mL/min POC Glucose 363 H 347 H (68-110) mg/dl Random Glucose 345 H (74-106) mg/dL Hemoglobin A1c (4.3-6.0) % Calcium 8.3 L (8.5-10.1) mg/dL Magnesium (1.5-2.5) mg/dL Total Bilirubin (0.2-1.0) mg/dL AST (15-37) U/L ALT (10-53) U/L Alkaline Phosphatase (45-117) U/L Troponin I (0.02-0.05) ng/mL B-Natriuretic Peptide (0-100) pg/mL Total Protein (6.4-8.2) g/dL Albumin (3.4-5.0) g/dL Ur Collection Type Urine Color (Yellw/Straw) Urine Clarity (Clear) Urine pH (5.0-8.5) Ur Specific [place] (1.002-1.035) Urine Protein (Neg-Trace) mg/dL Urine Glucose (UA) (Negative) mg/dL Urine Ketones (Negative) mg/dL Urine Occult Blood (Negative) Urine Nitrate (Negative) Urine Bilirubin (Negative) Urine Urobilinogen (Less than 2) mg/dL Ur Leukocyte Esterase (Negative) Urine RBC (0-3) /hpf Urine WBC (0-5) /hpf Ur Squamous Epith Cells (0-5) /hpf Micro UA Comment Ur Microscopic Review Urine Culture Comments 01/12/18 01/13/18 01/13/18 Range/Units 19:33 05:08 07:42 CBC w Diff WBC (4.0-11.0) th/mm3 RBC (4.00-5.30) mil/mm3 Hgb (11.6-15.3) gm/dL Hct (35.0-46.0) % MCV (80.0-100.0) fL MCH (27.0-34.0) pg MCHC (32.0-36.0) % RDW (11.6-17.2) % Plt Count (150-450) th/mm3 MPV (7.0-11.0) fL Neut % (Auto) (16.0-70.0) % Lymph % (Auto) (9.0-44.0) % [place] % (Auto) (0.0-8.0) % Eos % (Auto) (0.0-4.0) % Baso % (Auto) (0.0-2.0) % Neut # (Auto) (1.8-7.7) th/mm3 Lymph # (Auto) (1.0-4.8) th/mm3 [place] # (Auto) (0.0-0.9) th/mm3 Eos # (Auto) (0.0-0.4) th/mm3 Baso # (Auto) (0.0-0.2) th/mm3 WBC Differential Diff Scan Differential Comment Platelet Estimate (Normal) Platelet Morphology (Normal) RBC Morphology (Normal) Sodium 139 (136-145) meq/L Potassium 4.7 (3.5-5.1) meq/L Chloride 103 (98-107) meq/L Carbon Dioxide 30.0 (21.0-32.0) meq/L Anion Gap 6 (5-15) meq/L BUN 82 H (7-18) mg/dL Creatinine 1.80 H (0.50-1.00) mg/dL Estimated GFR 28 L (>89) mL/min POC Glucose 517 H* 276 H (68-110) mg/dl Random Glucose 279 H (74-106) mg/dL Hemoglobin A1c (4.3-6.0) % Calcium 8.0 L (8.5-10.1) mg/dL Magnesium 2.5 (1.5-2.5) mg/dL Total Bilirubin (0.2-1.0) mg/dL AST (15-37) U/L ALT (10-53) U/L Alkaline Phosphatase (45-117) U/L Troponin I (0.02-0.05) ng/mL B-Natriuretic Peptide (0-100) pg/mL Total Protein (6.4-8.2) g/dL Albumin (3.4-5.0) g/dL Ur Collection Type Urine Color (Yellw/Straw) Urine Clarity (Clear) Urine pH (5.0-8.5) Ur Specific [place] (1.002-1.035) Urine Protein (Neg-Trace) mg/dL Urine Glucose (UA) (Negative) mg/dL Urine Ketones (Negative) mg/dL Urine Occult Blood (Negative) Urine Nitrate (Negative) Urine Bilirubin (Negative) Urine Urobilinogen (Less than 2) mg/dL Ur Leukocyte Esterase (Negative) Urine RBC (0-3) /hpf Urine WBC (0-5) /hpf Ur Squamous Epith Cells (0-5) /hpf Micro UA Comment Ur Microscopic Review Urine Culture Comments Discharge Plan Discharge Disposition Patient Disposition: 01 Discharge Home Discharge Condition Condition: Stable Discharge Order Discharge Orders: Discharge Order (Routine); Ordered 01/13/18 Ordered By: Sylvia Oropeza Physicians Team ED Provider: Silviano Perez Primary Care Provider: UNKNOWN, Attending Provider: Sylvia Oropeza Other Providers: ; Nilo Pennington Status ED Status: Discharged Discharge Information Discharge Date/Time: 01/10/18 07:47
[2018-01-10 06:20] LABS: Baso # (Auto) 0.1 th/mm3 (0.0-0.2); Baso % (Auto) 0.4 % (0.0-2.0); Eos # (Auto) 0.1 th/mm3 (0.0-0.4); Eos % (Auto) 0.9 % (0.0-4.0); Hematocrit 29.6 % (35.0-46.0); Hemoglobin 9.5 gm/dL (11.6-15.3); Lymph # (Auto) 1.5 th/mm3 (1.0-4.8); Lymph % (Auto) 11.8 % (9.0-44.0); Mean Corpuscular HGB Conc 32.2 % (32.0-36.0); Mean Corpuscular Hemoglobin 28.8 pg (27.0-34.0); Mean Corpuscular Volume 89.5 fL (80.0-100.0); Mean Platelet Volume 8.4 fL (7.0-11.0); Mono # (Auto) 0.4 th/mm3 (0.0-0.9); Mono % (Auto) 3.2 % (0.0-8.0); Neut # (Auto) 10.5 th/mm3 (1.8-7.7); Neut % (Auto) 83.7 % (16.0-70.0); Platelet Count 351 th/mm3 (150-450); Red Blood Count 3.31 mil/mm3 (4.00-5.30); Red Cell Distribution Width 13.7 % (11.6-17.2); White Blood Count 12.6 th/mm3 (4.0-11.0)
[2018-01-10 06:28] LABS: Chloride 102 meq/L (98-107); Potassium 5.1 meq/L (3.5-5.1); Sodium 136 meq/L (136-145)
[2018-01-10 06:31] LABS: Albumin 2.8 g/dL (3.4-5.0); Anion Gap 6 meq/L (5-15); Calcium 8.1 mg/dL (8.5-10.1); Carbon Dioxide 27.8 meq/L (21.0-32.0)
[2018-01-10 06:36] LABS: RBC Morphology Normal (Normal)
[2018-01-10 06:37] LABS: Platelet Estimate Normal (Normal); Platelet Morphology Normal (Normal)
[2018-01-10 06:58] LABS: Alanine Aminotransferase 25 U/L (10-53); Alkaline Phosphatase 129 U/L (45-117); Aspartate Aminotransferase 13 U/L (15-37); Blood Urea Nitrogen 65 mg/dL (7-18); Glomerular Filtration Rate 25 mL/min (>89); Glucose,Random 304 mg/dL (74-106); Total Protein 6.5 g/dL (6.4-8.2)
[2018-01-10] MEDS ORDERED: Bisacodyl 10 MG Supp RECTAL PRN (07:27)
[2018-01-10] MEDS ORDERED: Acetaminophen 325 MG Tablet PO PRN (07:27)
[2018-01-10] MEDS ORDERED: MethylPREDNISolone Sod Succinate Inj 40 MG/ML Vial IV.PUSH SCH (08:00)
[2018-01-10] MEDS ORDERED: Dextrose 50% in Water 50 ML Vial IV.PUSH PRN (08:18)
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
[2018-01-10] MEDS: Enoxaparin Inj 40 MG/0.4 ML Syringe SQ SCH (09:28)
[2018-01-10] MEDS: Insulin NovoLOG Aspart Correctional Sugar Inj SQ SCH ×3 (11:51→21:20)
[2018-01-10] MEDS ORDERED: Insulin NovoLOG Aspart Correctional Sugar Inj SQ SCH (12:00)
--- NOTE | 2018-01-10 12:06 | ECG ---
Date Performed: 01/10/2018 Time Performed: 06:28:34 PTAGE: 67 years EKG: Sinus rhythm WITH OCCASIONAL SUPRAVENTRICULAR PREMATURE COMPLEXES SEPTAL MYOCARDIAL INFARCTION ABNORMAL ECG Since the PREVIOUS TRACING , no significant change noted PREVIOUS TRACIN01/04/2018 17.15 DOCTOR: Di[employer] Interpretating Date/Time 01/10/2018 12:02:48
[2018-01-10] MEDS: MethylPREDNISolone Sod Succinate Inj 40 MG/ML Vial IV.PUSH SCH ×2 (14:28→21:19)
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
[2018-01-10] MEDS ORDERED: Insulin Detemir Inj 1,000 UNIT/10 ML Vial SQ SCH (21:00)
[2018-01-11] MEDS: MethylPREDNISolone Sod Succinate Inj 40 MG/ML Vial IV.PUSH SCH ×4 (01:56→21:01)
[2018-01-11] MEDS: Insulin NovoLOG Aspart Correctional Sugar Inj SQ SCH ×4 (07:53→20:59)
[2018-01-11] MEDS: Enoxaparin Inj 40 MG/0.4 ML Syringe SQ SCH ×2 (07:54→08:01)
[2018-01-11 08:28] LABS: Baso % (Auto) 0.1 % (0.0-2.0); Eos % (Auto) 0.1 % (0.0-4.0); Hematocrit 29.6 % (35.0-46.0); Hemoglobin 10.3 gm/dL (11.6-15.3); Lymph # (Auto) 0.8 th/mm3 (1.0-4.8); Lymph % (Auto) 9.8 % (9.0-44.0); Mean Corpuscular HGB Conc 34.7 % (32.0-36.0); Mean Corpuscular Hemoglobin 30.6 pg (27.0-34.0); Mean Corpuscular Volume 88.2 fL (80.0-100.0); Mean Platelet Volume 8.6 fL (7.0-11.0); Mono # (Auto) 0.1 th/mm3 (0.0-0.9); Mono % (Auto) 1.2 % (0.0-8.0); Neut # (Auto) 7.5 th/mm3 (1.8-7.7); Neut % (Auto) 88.8 % (16.0-70.0); Platelet Count 303 th/mm3 (150-450); Red Blood Count 3.35 mil/mm3 (4.00-5.30); Red Cell Distribution Width 14.1 % (11.6-17.2); White Blood Count 8.4 th/mm3 (4.0-11.0)
[2018-01-11 08:35] LABS: Potassium 5.5 meq/L (3.5-5.1)
[2018-01-11 08:37] LABS: Calcium 8.1 mg/dL (8.5-10.1)
[2018-01-11 08:38] LABS: Carbon Dioxide 27.5 meq/L (21.0-32.0)
--- NOTE | 2018-01-11 11:28 | P.PNIM ---
Subjective Interval history: Patient complains of shortness of breath when she lies flat. She does not have any other complaints this morning. Physical Exam Vital signs: Vital Signs 01/10/18 12:00 01/10/18 13:38 01/10/18 16:00 Temperature 97.0 F L 97.2 F L Pulse Rate 71 71 72 Respiratory Rate 20 18 21 Blood Pressure 149/79 H 186/100 H Pulse Oximetry 98 93 L 01/10/18 19:19 01/10/18 20:00 01/11/18 00:00 Temperature 97.1 F L 96.4 F L Pulse Rate 73 76 74 Respiratory Rate 18 16 18 Blood Pressure 195/88 H 195/89 H Pulse Oximetry 97 90 L 95 01/11/18 04:00 01/11/18 08:00 01/11/18 09:16 Temperature 97.4 F L 97.5 F L Pulse Rate 74 70 72 Respiratory Rate 18 21 18 Blood Pressure 189/84 H 199/85 H Pulse Oximetry 90 L 98 96 Intake & Output 01/10/18 01/11/18 01/11/18 18:59 06:59 18:59 Intake Total 960 / 960 480 / 480 Output Total 2850 / 2850 1500 / 1500 Balance -1890 / -1890 -1020 / -1020 Weight 101.151 kg 101.1 kg Intake: Oral 960 / 960 480 / 480 Output: Urine 2850 / 2850 1500 / 1500 Other: # Voids 5 Date of Last Bowel Movement 01/09/18 # Bowel Movements 0 Weight On Admission 101.151 kg Narrative: General patient complains of shortness of breath when she lies flat. HEENT extraocular movements are intact, clear oropharyngeal mucosa, mild JVD Cardiovascular S1-S2 audible Respiratory bibasilar crackles Abdomen soft, nontender, nondistended, normal bowel sounds Extremities 2+ pitting edema bilateral lower extremities up to the shins Neuro cranial nerves II through XII intact Results - Labs CBC & Chem 7: 01/11/18 08:10 01/11/18 08:10 Laboratory Results - last 24 hr 01/10/18 01/10/18 01/10/18 11:14 16:52 20:09 CBC w Diff WBC RBC Hgb Hct MCV MCH MCHC RDW Plt Count MPV Neut % (Auto) Lymph % (Auto) [place] % (Auto) Eos % (Auto) Baso % (Auto) Neut # (Auto) Lymph # (Auto) [place] # (Auto) Eos # (Auto) Baso # (Auto) WBC Differential Differential Comment Sodium Potassium Chloride Carbon Dioxide Anion Gap BUN Creatinine Estimated GFR POC Glucose 305 H 194 H 311 H Random Glucose Calcium 01/11/18 01/11/18 01/11/18 07:39 08:10 08:10 CBC w Diff Auto diff final WBC 8.4 RBC 3.35 L Hgb 10.3 L Hct 29.6 L MCV 88.2 MCH 30.6 MCHC 34.7 RDW 14.1 Plt Count 303 MPV 8.6 Neut % (Auto) 88.8 H Lymph % (Auto) 9.8 [place] % (Auto) 1.2 Eos % (Auto) 0.1 Baso % (Auto) 0.1 Neut # (Auto) 7.5 Lymph # (Auto) 0.8 L [place] # (Auto) 0.1 Eos # (Auto) 0.0 Baso # (Auto) 0.0 WBC Differential . Differential Comment . Sodium 136 Potassium 5.5 H Chloride 102 Carbon Dioxide 27.5 Anion Gap 7 BUN 70 H Creatinine 1.70 H Estimated GFR 30 L POC Glucose 332 H Random Glucose 329 H Calcium 8.1 L Assessment and Plan - Plan This patient is a 67-year-old female with a diagnosis of COPD on 4 L of supplemental oxygen, congestive heart failure with preserved ejection fraction, chronic kidney disease, diabetes mellitus type 2. Patient has had 3 visits to our emergency department in the past 36 hours with complaints of shortness of breath. 1. Acute hypoxic respiratory failure secondary to COPD exacerbation 2. Pulmonary hypertension 3. Tobacco abuse. Patient initially was requiring more supplemental oxygen than her baseline. Currently the patient is at 4 L of oxygen. Continue IV Solu-Medrol, continue breathing treatments as needed. Patient's wheezing on physical examination is improving. Echocardiogram shows pulmonary hypertension which is likely due to COPD. Patient was advised to stop smoking. 4. Acute on chronic CHF exacerbation with preserved EF 5. Acute kidney injury on chronic kidney disease likely secondary to CHF exacerbation 6. Hyperkalemia secondary to acute kidney injury on CKD Patient has 2+ pitting edema bilateral lower extremities up to the shins. Continue IV Lasix, patient is diuresing well. Patient serum creatinine has improved somewhat from yesterday. We will follow- up in a.m. renal panel. Patient's serum potassium was 5.5 this morning. Continue IV Lasix. We will follow-up with an a.m. renal panel. Avoid nephrotoxic agents 7. Diabetes mellitus We will increase the patient's Levemir dose. Continue sliding scale. Patient is currently on IV Solu-Medrol and her blood sugars are likely elevated because of IV steroids. 8. Hypertension Patient has a systolic blood pressure ranging from 180-190. She will be started on hydralazine and Norvasc. We will continue to monitor her blood pressure and adjust her medications as needed. Plan discussed with the patient's nurse at bedside. Heparin for DVT prophylaxis
[2018-01-11] MEDS: amLODIPine 5 MG Tablet PO SCH (11:50)
[2018-01-11 11:58] LABS: Bilirubin,Urine Negative (Negative); Clarity,Urine Clear (Clear); Color,Urine Yellow (Yellw/Straw); Glucose,Urine (UA) 500 mg/dL (Negative); Leukocyte Esterase,Urine Negative (Negative); Nitrite,Urine Negative (Negative); PH,Urine 5.5 (5.0-8.5); Urobilinogen,Urine 0.2 mg/dL (Less than 2)
[2018-01-11 12:07] LABS: Squamous Epithelial Cell,Urine 0-5 /hpf (0-5); WBC,Urine 0-5 /hpf (0-5)
[2018-01-11] MEDS: hydrALAZINE 25 MG Tablet PO SCH ×2 (12:20→20:59)
[2018-01-11] MEDS ORDERED: hydrALAZINE 25 MG Tablet PO SCH (13:00)
[2018-01-11 17:17] LABS: Hemoglobin A1c 6.5 % (4.3-6.0)
--- NOTE | 2018-01-11 19:10 | P.PNPL ---
Subjective Interval history: 67 YOWF with COPD, CHF,PHTN Breathing betetr today Weaned to 2LNC No cough or sputum Son at Physical Exam Vital signs: Vital Signs 01/10/18 19:19 01/10/18 20:00 01/11/18 00:00 Temperature 97.1 F L 96.4 F L Pulse Rate 73 76 74 Respiratory Rate 18 16 18 Blood Pressure 195/88 H 195/89 H Pulse Oximetry 97 90 L 95 01/11/18 04:00 01/11/18 08:00 01/11/18 09:16 Temperature 97.4 F L 97.5 F L Pulse Rate 74 70 72 Respiratory Rate 18 21 18 Blood Pressure 189/84 H 199/85 H Pulse Oximetry 90 L 98 96 01/11/18 12:00 01/11/18 14:09 01/11/18 16:00 Temperature 97.2 F L 96.8 F L Pulse Rate 67 74 76 Respiratory Rate 20 18 21 Blood Pressure 172/90 H 174/72 H Pulse Oximetry 98 100 Intake & Output 01/11/18 01/11/18 01/12/18 06:59 18:59 06:59 Intake Total 480 / 480 Output Total 1500 / 1500 1300 / 1300 Balance -1020 / -1020 -1300 / -1300 Weight 101.1 kg Intake: Oral 480 / 480 Output: Urine 1500 / 1500 1300 / 1300 Other: # Voids 1 GENERAL: Elderly WF,NAD SKIN: Warm and dry. HEAD: Normocephalic. EYES: No scleral icterus. No injection or drainage. NECK: Supple, trachea midline. No JVD or lymphadenopathy. CARDIOVASCULAR: Regular rate and rhythm without murmurs, gallops, or rubs. RESPIRATORY: Breath sounds equal bilaterally. No accessory muscle use. Decreased BS at bases GASTROINTESTINAL: Abdomen soft, non-tender, nondistended. MUSCULOSKELETAL: No cyanosis, or edema. BACK: Nontender without obvious deformity. No CVA tenderness. Assessment and Plan - Plan IMPRESSION: 1. Shortness of breath, which is multifactorial. 2. Chronic obstructive pulmonary disease. 3. Decompensated congestive heart failure. 4. Bilateral small pleural effusion. 5. Pulmonary hypertension. 6. Diabetes mellitus. 7. Chronic kidney disease. PLAN: Aerosol nebs Cont steroids Diurease Monitor pl effusion Supplement 02 to keep sat >90% PFT DW pt and her son at BS
[2018-01-11] MEDS: Heparin - SQ 10,000 UNITS/ML Vial SQ SCH (20:59)
[2018-01-11] MEDS ORDERED: Insulin Detemir Inj 1,000 UNIT/10 ML Vial SQ SCH (21:00)
[2018-01-12] MEDS: MethylPREDNISolone Sod Succinate Inj 40 MG/ML Vial IV.PUSH SCH ×3 (02:34→13:36)
[2018-01-12] MEDS: hydrALAZINE 25 MG Tablet PO SCH ×4 (05:34→21:35)
[2018-01-12] MEDS: amLODIPine 5 MG Tablet PO SCH ×2 (07:46→09:01)
[2018-01-12] MEDS: Heparin - SQ 10,000 UNITS/ML Vial SQ SCH ×3 (07:48→20:12)
[2018-01-12] MEDS: Insulin NovoLOG Aspart Correctional Sugar Inj SQ SCH ×4 (07:53→20:11)
[2018-01-12] MEDS ORDERED: Insulin Detemir Inj 1,000 UNIT/10 ML Vial SQ SCH ×2 (14:20→14:53)
[2018-01-12] MEDS ORDERED: amLODIPine 10 MG Tablet PO SCH (14:51)
--- NOTE | 2018-01-12 14:52 | P.PNIM ---
Subjective Interval history: Patient complains of bilateral lower extremity swelling. Otherwise she does not have any other complaints. Physical Exam Vital signs: Vital Signs 01/11/18 16:00 01/11/18 19:23 01/11/18 20:00 Temperature 96.8 F L 96.5 F L Pulse Rate 76 73 82 Respiratory Rate 21 18 18 Blood Pressure 174/72 H 165/72 H Pulse Oximetry 100 97 98 01/12/18 00:00 01/12/18 08:00 01/12/18 08:04 Temperature 96.4 F L 97.1 F L Pulse Rate 71 70 75 Respiratory Rate 18 24 18 Blood Pressure 158/72 H 156/80 H Pulse Oximetry 97 95 01/12/18 13:06 Temperature Pulse Rate 81 Respiratory Rate 18 Blood Pressure Pulse Oximetry 99 Intake & Output 01/11/18 01/12/18 01/12/18 18:59 06:59 18:59 Intake Total 1000 / 1000 Output Total 1300 / 1300 Balance -1300 / -1300 1000 / 1000 Weight 103.4 kg Intake: Oral 1000 / 1000 Output: Urine 1300 / 1300 Other: # Voids 1 1,200 Date of Last Bowel Movement 01/11/18 Narrative: General patient complains of shortness of breath when she lies flat. HEENT extraocular movements are intact, clear oropharyngeal mucosa, mild JVD Cardiovascular S1-S2 audible Respiratory bibasilar crackles Abdomen soft, nontender, nondistended, normal bowel sounds Extremities 2+ pitting edema bilateral lower extremities up to the shins Neuro cranial nerves II through XII intact Results - Labs CBC & Chem 7: 01/11/18 08:10 01/11/18 08:10 Laboratory Results - last 24 hr 01/11/18 01/11/18 01/11/18 08:10 16:32 20:53 POC Glucose 466 H* 459 H* Hemoglobin A1c 6.5 H 01/12/18 01/12/18 07:36 11:36 POC Glucose 347 H 363 H Hemoglobin A1c Assessment and Plan - Plan This patient is a 67-year-old female with a diagnosis of COPD on 4 L of supplemental oxygen, congestive heart failure with preserved ejection fraction, chronic kidney disease, diabetes mellitus type 2. Patient has had 3 visits to our emergency department in the past 36 hours with complaints of shortness of breath. 1. Acute hypoxic respiratory failure secondary to COPD exacerbation 2. Pulmonary hypertension 3. Tobacco abuse. Patient currently on her baseline supplemental oxygen. We will switch IV steroids to p.o. prednisone. Continue breathing treatments as needed. Patient's wheezing on physical examination has improved. Echocardiogram shows pulmonary hypertension which is likely due to COPD. Patient was advised to stop smoking. 4. Acute on chronic CHF exacerbation with preserved EF 5. Acute kidney injury on chronic kidney disease likely secondary to CHF exacerbation 6. Hyperkalemia secondary to acute kidney injury on CKD Patient has 2+ pitting edema bilateral lower extremities up to the shins, improving Continue IV Lasix, patient is diuresing well. Patient's BMP is pending from today. We will follow-up serum creatinine and serum potassium. Continue IV Lasix. We will follow-up with an a.m. renal panel. Avoid nephrotoxic agents 7. Diabetes mellitus We will increase the patient's Levemir dose. Increase pre-meal coverage, continue sliding scale Patient is currently on steroids which is likely contributing to her hyperglycemia. 8. Hypertension Patient has a systolic blood pressure ranging in the 150s. She was started on hydralazine and Norvasc. We will increase the dose of Norvasc today. We will continue to monitor her blood pressure and adjust her medications as needed. Heparin for DVT prophylaxis
--- NOTE | 2018-01-12 14:55 | P.DCO ---
- Physical Therapy Order: Evaluate and treat - Home Health Nursing Order: Medical education, Diabetic education - Case Management Consult Case Management Consult-Home Health: Yes - Certification I have seen patient Marcela Carlson on 01/12/18. My clinical findings support the need for the requested home health care services because: Medication compliance is questionable I certify that my clinical findings support that this patient is homebound because: Unsafe to leave home unassisted
[2018-01-12 15:43] LABS: Calcium 8.3 mg/dL (8.5-10.1); Carbon Dioxide 28.3 meq/L (21.0-32.0)
[2018-01-13] MEDS: hydrALAZINE 25 MG Tablet PO SCH (05:24)
[2018-01-13 06:41] LABS: Potassium 4.7 meq/L (3.5-5.1)
[2018-01-13 06:46] LABS: Magnesium 2.5 mg/dL (1.5-2.5)
[2018-01-13] MEDS: Insulin NovoLOG Aspart Correctional Sugar Inj SQ SCH (09:09)
[2018-01-13] MEDS: Heparin - SQ 10,000 UNITS/ML Vial SQ SCH (09:11)
[2018-01-13 09:13] VITALS: RESP 20; TEMP 96.5
[2018-01-13] MEDS ORDERED: hydrALAZINE 25 MG Tablet PO SCH (09:16)
[2018-01-13] MEDS ORDERED: Insulin Detemir Inj 1,000 UNIT/10 ML Vial SQ SCH (09:17)
--- NOTE | 2018-01-13 10:16 | P.DS ---
Date of admission: 01/10/18 07:14 Primary care physician: UNKNOWN Brief History from admission: Ms. Carlson is a pleasant 67-year-old female with a history of COPD, CHF , chronic kidney disease, diabetes mellitus who presents to the emergency department for the third time in 36 hours due to worsening shortness of breath. On physical examination the patient had significant bilateral lower extremity swelling and was wheezing on physical examination. She was then admitted for COPD exacerbation and CHF exacerbation with preserved EF. DS: Medications - Discharge Medications Prescriptions: amlodipine [Norvasc] 10 mg PO DAILY #30 tab budesonide-formoterol [Symbicort] 2 puff INHALATION BID #1 inhaler empagliflozin [Jardiance] 10 mg PO DAILY #30 tab furosemide [Lasix] 40 mg PO BID #60 tab glipizide 5 mg PO DAILY #30 tab hydralazine 50 mg PO Q8HR #90 tab DS: Summary Hospital Course: This patient is a 67-year-old female with a diagnosis of COPD on 4 L of supplemental oxygen, congestive heart failure with preserved ejection fraction, chronic kidney disease, diabetes mellitus type 2. Patient has had 3 visits to our emergency department in the past 36 hours with complaints of shortness of breath. 1. Acute hypoxic respiratory failure secondary to COPD exacerbation 2. Pulmonary hypertension 3. Tobacco abuse. The patient presented with complaints of shortness of breath and significant bilateral lower extremity swelling. She was wheezing on physical examination. Chest x-ray was done which did not show any infiltrate. The patient was started on IV steroids, and breathing treatments. Patient currently on her baseline supplemental oxygen. Patient was advised to stop smoking as she is a current smoker. After a few days the patient's symptoms significantly improved and the patient was transitioned to p.o. steroids. She says she does not have inhalers at home. She will be discharged on albuterol, Symbicort, p.o. prednisone taper. Scripts for the medications were given to the patient prior to her discharge. I recommend that she follows up with her primary care doctor who is Dr. Alcala within 1 week and she should also follow-up with cardiology given her pulmonary hypertension. She currently uses 3-4 L baseline home oxygen and she can continue to use oxygen on discharge. The patient will be discharged home today. 4. Acute on chronic CHF exacerbation with preserved EF 5. Acute kidney injury on chronic kidney disease likely secondary to CHF exacerbation Patient has 3+ pitting edema bilateral lower extremities up to the shins, on admission. She was started on IV Lasix and placed on a fluid restriction. We monitored strict ins and outs. After a few days of IV diuresis the patient's symptoms improved significantly. Her Lasix dose on discharge will be increased to 40 mg p.o. twice daily given her CKD and lower extremity edema. I recommend she follow-up with her primary care doctor within 1 week and her medications can be adjusted. She is no longer short of breath and is at her baseline of 3-4 L of supplemental oxygen. 7. Diabetes mellitus Patient has a diagnosis of diabetes. She is noncompliant with her medications. The importance of medication compliance were discussed with the patient detail. On discharge she will be given a prescription for Jardiance and glipizide which is what she was supposed to be taking prior to admission. While in the hospital her blood sugars were significant elevated in the 300s because of IV steroids for COPD exacerbation. She can follow-up with her primary care doctor and her diabetes medication regimen can be adjusted as needed. 8. Hypertension Patient has a systolic blood pressure ranging in the 150s-180s. She was started on hydralazine and Norvasc, which will be continued on discharge. Blood pressure is now better controlled. Her antihypertensives can be adjusted as needed by her primary care doctor. The patient called Dr. Alcala's office today for appointment scheduling. - Time Spent with Patient Total time spent providing and/or coordinating discharge services: Greater than 30 minutes - Quality: VTE Deep Vein Thrombosis/Pulmonary Embolism Present on Admission: No Exam Vital signs: Vital Signs 01/12/18 12:00 01/12/18 13:06 01/12/18 16:00 Temperature 96.1 F L 96.5 F L Pulse Rate 75 81 68 Respiratory Rate 20 18 20 Blood Pressure 186/77 H 193/80 H Pulse Oximetry 99 99 98 01/12/18 19:51 01/12/18 20:00 01/13/18 00:00 Temperature 97.2 F L 96.2 F L Pulse Rate 70 70 72 Respiratory Rate 18 20 Blood Pressure 161/75 H 179/76 H Pulse Oximetry 99 100 94 L 01/13/18 02:45 01/13/18 04:00 01/13/18 07:35 Temperature 96 F L Pulse Rate 69 73 78 Respiratory Rate 18 20 16 Blood Pressure 197/80 H Pulse Oximetry 99 98 01/13/18 08:00 Temperature 96.5 F L Pulse Rate 66 Respiratory Rate 20 Blood Pressure 155/66 H Pulse Oximetry 99 Intake & Output 01/12/18 01/13/18 01/13/18 18:59 06:59 18:59 Intake Total 715 / 715 240 / 240 Output Total 1650 / 1650 825 / 825 Balance -935 / -935 -585 / -585 Weight 100.8 kg Intake: Oral 715 / 715 240 / 240 Output: Urine 1650 / 1650 825 / 825 Other: # Voids 1 Date of Last Bowel Movement 01/11/18 Narrative: General patient in no acute distress HEENT extraocular movements are intact, clear oropharyngeal mucosa, no JVD Cardiovascular S1-S2 audible, RRR, no murmurs rubs or gallops Respiratory clear to auscultation bilaterally Abdomen soft, nontender, nondistended, normal bowel sounds Extremities 1+ pitting edema bilateral lower extremities. Neuro cranial nerves II through XII intact Results Procedures completed during hospitalization: None Labs on day of discharge: Labs from last 24 hours 01/13/18 01/13/18 01/12/18 07:42 05:08 19:33 Sodium 139 Potassium 4.7 Chloride 103 Carbon Dioxide 30.0 Anion Gap 6 BUN 82 H Creatinine 1.80 H Estimated GFR 28 L POC Glucose 276 H 517 H* Random Glucose 279 H Calcium 8.0 L Magnesium 2.5 01/12/18 01/12/18 01/12/18 16:59 15:20 11:36 Sodium 136 Potassium 5.0 Chloride 101 Carbon Dioxide 28.3 Anion Gap 7 BUN 84 H Creatinine 1.90 H Estimated GFR 27 L POC Glucose 347 H 363 H Random Glucose 345 H Calcium 8.3 L Magnesium Discharge Plan - Discharge Disposition Patient Disposition: 01 Discharge Home - Discharge Condition Condition: Stable - Discharge Order Discharge Orders: Discharge Order (Routine); Ordered 01/13/18 Ordered By: Sylvia Oropeza - Physicians Team Primary Care Provider: UNKNOWN, Attending Provider: Sylvia Oropeza Other Providers: ; Nilo Pennington MD - Rxs /Orders / Referrals /Forms Prescriptions: New albuterol sulfate [Ventolin HFA] 90 mcg/actuation Hfa Aerosol Inhaler 2 puff INHALATION Q6H PRN (Reason: Shortness Of Breath Or Wheezing) Qty: 1 RF: 0 amlodipine [Norvasc] 10 mg Tablet 10 mg PO DAILY Qty: 30 RF: 0 budesonide-formoterol [Symbicort] 80-4.5 mcg/actuation Hfa Aerosol Inhaler 2 puff INHALATION BID Qty: 1 RF: 0 hydralazine 25 mg Tablet 50 mg PO Q8HR Qty: 90 RF: 0 prednisone 10 mg Tablet 10 mg PO DAILY Qty: 17 RF: 0 Continue albuterol sulfate 1.25 mg/3 mL Solution For Nebulization 1.25 mg INHALATION Q4-6H MDD 4 PRN (Reason: Shortness Of Breath) aspirin [Aspirin Low Dose] 81 mg Tablet,Delayed Release (Dr/Ec) 81 mg PO DAILY atorvastatin 40 mg Tablet 40 mg PO DAILY buprenorphine-naloxone [Suboxone] 8-2 mg Film 1 film SUBLINGUAL DAILY carvedilol 3.125 mg Tablet 3.125 mg PO BID diazepam [Valium] 2 mg tablet 2 mg PO TID PRN (Reason: anxiety) Qty: 14 RF: 0 empagliflozin [Jardiance] 10 mg Tablet 10 mg PO DAILY Qty: 30 gabapentin 100 mg Capsule 100 mg PO DAILY glipizide 5 mg Tablet 5 mg PO DAILY Qty: 30 Changed furosemide [Lasix] 40 mg Tablet 40 mg PO BID Qty: 60 Changed from: 40 mg oral daily Discontinued azithromycin [Zithromax Z-Colt] 250 mg tablet See Label Instructions .ROUTE .COMPLEX Qty: 6 RF: 0 cefdinir 300 mg capsule 300 mg PO BID 10 Days Qty: 20 RF: 0 prednisone 5 mg tablets,dose pack See Label Instructions PO PER PKG DIR Qty: 21 RF: 0 No Action (DME) nebulizer and compressor device Qty: 1 RF: 0 Referrals: UNKNOWN, [Primary Care Provider] - See Instructions - Discharge Instructions Additional Instructions: Follow-up with primary care doctor who is Dr. Alcala within 1 week.
[2018-01-13 11:17] VITALS: BP 143/74; PULSE 74; O2SAT 100
== END 2018-01-13 11:25 | disposition home health service (06) | DRG 291 ==
LOC: PHED 05:35 → PHEDA 07:14 → PHED 07:47 → PH3 08:13
PROVIDERS: ADMIT Hospitalist; ATTEND Hospitalist
CPT/HCPCS: 71010; 71045; 80048; 80053; 81001; 82948; 82962; 83036; 83520; 83735; 83880; 84484; 85025; 90774; 90776; 93005; 94060; 94640; 94664; 94665; 96374; 96376; 99283; 99284; 99285; C8952; J1644; J1650; J1815; J1940; J2920; J2930; J7506; J7512

== ENCOUNTER 2018-02-23 18:51 | Inpatient (IN) ==
[2018-02-23] MEDS ORDERED: Morphine Sulfate Inj 2 MG/ML Vial IV.PUSH ONE (19:10)
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
[2018-02-23 19:21] LABS: Baso % (Auto) 0.3 % (0.0-2.0); Eos # (Auto) 0.2 th/mm3 (0.0-0.4); Hematocrit 30.9 % (35.0-46.0); Hemoglobin 9.9 gm/dL (11.6-15.3); Lymph # (Auto) 0.9 th/mm3 (1.0-4.8); Lymph % (Auto) 14.3 % (9.0-44.0); Mean Corpuscular Volume 87.8 fL (80.0-100.0); Mean Platelet Volume 7.8 fL (7.0-11.0); Mono # (Auto) 0.5 th/mm3 (0.0-0.9); Mono % (Auto) 7.6 % (0.0-8.0); Neut # (Auto) 4.7 th/mm3 (1.8-7.7); Neut % (Auto) 74.8 % (16.0-70.0); Platelet Count 317 th/mm3 (150-450); Red Blood Count 3.53 mil/mm3 (4.00-5.30); Red Cell Distribution Width 15.1 % (11.6-17.2); White Blood Count 6.3 th/mm3 (4.0-11.0)
[2018-02-23 19:29] LABS: Chloride 110 meq/L (98-107); Potassium 4.8 meq/L (3.5-5.1); Sodium 138 meq/L (136-145)
[2018-02-23 19:33] LABS: Albumin 2.5 g/dL (3.4-5.0); Anion Gap 6 meq/L (5-15); Blood Urea Nitrogen 41 mg/dL (7-18); Calcium 7.8 mg/dL (8.5-10.1); Carbon Dioxide 22.4 meq/L (21.0-32.0); Glucose,Random 259 mg/dL (74-106)
[2018-02-23 19:36] LABS: Alanine Aminotransferase 10 U/L (10-53); Aspartate Aminotransferase 10 U/L (15-37); Glomerular Filtration Rate 32 mL/min (>89)
[2018-02-23 19:38] LABS: Total Protein 6.8 g/dL (6.4-8.2)
[2018-02-23 19:39] LABS: Alkaline Phosphatase 110 U/L (45-117)
[2018-02-23 19:41] LABS: Troponin I 0.06 ng/mL (0.02-0.05)
--- NOTE | 2018-02-23 19:55 | XR ---
EXAM DATE: 02/23/2018 7:51 PM EST AGE/SEX: 67 years / Female INDICATIONS: Short of breath. CLINICAL DATA: This is the patient's initial encounter. Patient reports that signs and symptoms have been present for 1 day and indicates a pain score of 5/10. MEDICAL/SURGICAL HISTORY: Diabetes. Hypertension. None. COMPARISON: [facility], CHEST 1V SINGLE AP, 01/09/2018. . FINDINGS: The examination is performed on an egg-crate pad. There is indistinctness of the central bronchopulmo nary markings and persistent airspace opacities in the perihilar and infrahilar region bilaterally. T here is also loss of delineation of both hemidiaphragms suggesting pleural effusions. The findings ar e similar to prior examination in December 2017. The heart is mildly enlarged, also stable. CONCLUSION: Cardiomegaly, pulmonary edema, and bilateral pleural effusions, similar in severity to 01/09/2018. Electronically signed by: Donald Ulloa MD Board Certified Radiologist 02/23/2018 7:54 PM EST
[2018-02-23] MEDS ORDERED: Dextrose 50% in Water 50 ML Vial IV.PUSH PRN (21:38)
--- NOTE | 2018-02-23 21:45 | P.EN ---
Valium prescription could not be verified on [facility] Database - recommend patient brings in her prescription bottle prior to resuming medication. The patient takes Suboxone according to the Database.
[2018-02-24] MEDS: hydrALAZINE 50 MG Tablet PO SCH ×4 (01:20→22:54)
[2018-02-24] MEDS: Budesonide-Formoterol 80/4.5 MCG 6.9 GM Inhaler INH SCH ×3 (01:21→21:06)
[2018-02-24] MEDS: Heparin - SQ 10,000 UNITS/ML Vial SQ SCH ×4 (01:23→22:54)
[2018-02-24] MEDS: Insulin NovoLOG Aspart Correctional Sugar Inj SQ SCH ×5 (05:55→22:45)
--- NOTE | 2018-02-24 08:29 | ECG ---
Date Performed: 02/23/2018 Time Performed: 19:18:32 PTAGE: 67 years EKG: Sinus rhythm LOW QRS VOLTAGE IN PRECORDIAL LEADS SEPTAL MYOCARDIAL INFARCTION ABNORMAL ECG Since the PREVIOUS TRACING , no significant change noted PREVIOUS TRACIN01/10/2018 06.28 DOCTOR: June Combs Interpretating Date/Time 02/24/2018 08:25:46
[2018-02-24 08:38] LABS: Potassium 4.7 meq/L (3.5-5.1)
[2018-02-24 08:41] LABS: Calcium 8.1 mg/dL (8.5-10.1); Carbon Dioxide 22.7 meq/L (21.0-32.0)
[2018-02-24 08:51] LABS: Troponin I 0.05 ng/mL (0.02-0.05)
[2018-02-24] MEDS: glipiZIDE 5 MG Tablet PO SCH (09:44)
[2018-02-24] MEDS: Gabapentin 100 MG Capsule PO SCH (09:44)
[2018-02-24] MEDS: amLODIPine 10 MG Tablet PO SCH (09:44)
[2018-02-24] MEDS: predniSONE 10 MG Tablet PO SCH (09:44)
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
[2018-02-24 10:37] LABS: ABG Base Excess -1.2 mmol/L (-2-2); ABG PCO2 37 mmHg (38-42); ABG PO2 110 mmHg (61-120)
[2018-02-24] MEDS: MethylPREDNISolone Sod Succinate Inj 40 MG/ML Vial IV.PUSH SCH ×2 (17:32→22:54)
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
[2018-02-25] MEDS: Insulin NovoLOG Aspart Correctional Sugar Inj SQ SCH ×5 (03:24→21:50)
[2018-02-25] MEDS: hydrALAZINE 50 MG Tablet PO SCH ×3 (06:10→21:49)
[2018-02-25] MEDS: MethylPREDNISolone Sod Succinate Inj 40 MG/ML Vial IV.PUSH SCH (06:11)
[2018-02-25] MEDS: Heparin - SQ 10,000 UNITS/ML Vial SQ SCH ×3 (06:11→21:47)
[2018-02-25] MEDS: predniSONE 10 MG Tablet PO SCH ×2 (11:16→17:38)
[2018-02-25] MEDS: glipiZIDE 5 MG Tablet PO SCH (11:16)
[2018-02-25] MEDS: amLODIPine 10 MG Tablet PO SCH (11:16)
[2018-02-25] MEDS: Gabapentin 100 MG Capsule PO SCH (11:17)
--- NOTE | 2018-02-25 11:22 | P.PNIM ---
Subjective Interval history: In the chair, feels improving some. Still with wheezing and some sob. requiring less O2. No chest pain . No palpitations. Has bilateral LE wounds weeping more today will consult wound care. No pain in her legs, no fever or chills. No abd pain, n/v. Physical Exam Vital signs: Last Vital Signs Temp 97.2 F L 02/25/18 08:00 Pulse 20 L 02/25/18 08:00 Resp 18 02/25/18 07:00 BP 145/64 H 02/25/18 08:00 Pulse Ox 98 02/25/18 08:00 Intake & Output 02/23/18 02/24/18 02/25/18 02/26/18 06:59 06:59 06:59 06:59 Intake Total 50 / 50 1270 / 1270 480 / 480 Output Total 750 / 750 300 / 300 Balance -700 / -700 1270 / 1270 180 / 180 Weight 57.3 kg Narrative: GENERAL: 67-year-old female, more awake and alert, appearing older than the stated age. SKIN: Bilateral weeping wounds stasis dermatitis. Warm and dry. CARDIOVASCULAR: Regular rate and rhythm. RESPIRATORY: No accessory muscle use. Decreased breath sounds bilaterally. Scattered wheezing. Bibasilar Rales. GASTROINTESTINAL: Abdomen soft, obese, non-tender, nondistended. MUSCULOSKELETAL: Extremities without clubbing, cyanosis, or edema. No obvious deformities. NEUROLOGICAL: Awake and alert. No obvious cranial nerve deficits. Motor grossly within normal limits. Five out of 5 muscle strength in the arms and legs. Normal speech. PSYCHIATRIC: Appropriate mood and affect; insight and judgment normal. Results Labs CBC & Chem 7: 02/23/18 19:14 02/24/18 08:00 Assessment and Plan Plan Acute on chronic respiratory failure, resolving COPD with exacerbation CHF with preserved ejection fraction with exacerbation Bilateral pulmonary edema Chest x-ray reviewed with significant pulmonary edema Patient started on IV Lasix received 80 mg IV in the emergency room continue Lasix 40 mg IV twice daily. Monitor urine output. Monitor kidney function closely while on diuretics. Had a recent echo Duo nebs, Solu-Medrol taper as tolerated IS, Acapella Follows with Dr. Pennington pulmonology as outpatient Restart home medications as appropriate Bilateral leg wounds, consult wound care. Hypertension. Monitor and adjust medications as needed Diabetes mellitus. On insulin. Accu-Cheks. Restart home medications. Note to not restart Valium not and if works. According to E force patient is on Suboxone DVT prophylaxis heparin subq POss DC in 1-2 days if imprpves. Progress Note: Quality VTE Deep Vein Thrombosis/Pulmonary Embolism Present on Admission: No
[2018-02-25] MEDS: Budesonide-Formoterol 80/4.5 MCG 6.9 GM Inhaler INH SCH ×2 (13:56→21:49)
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
[2018-02-25] MEDS ORDERED: MethylPREDNISolone Sod Succinate Inj 40 MG/ML Vial IV.PUSH SCH (21:00)
[2018-02-26 00:33] VITALS: RESP 20
[2018-02-26] MEDS: Insulin NovoLOG Aspart Correctional Sugar Inj SQ SCH ×4 (04:14→17:21)
[2018-02-26] MEDS: Heparin - SQ 10,000 UNITS/ML Vial SQ SCH ×2 (06:41→13:38)
[2018-02-26] MEDS: hydrALAZINE 50 MG Tablet PO SCH ×2 (06:41→13:38)
[2018-02-26] MEDS: Gabapentin 100 MG Capsule PO SCH (08:13)
[2018-02-26] MEDS: glipiZIDE 5 MG Tablet PO SCH (08:14)
[2018-02-26] MEDS: amLODIPine 10 MG Tablet PO SCH (08:14)
[2018-02-26] MEDS: predniSONE 10 MG Tablet PO SCH ×3 (08:14→17:20)
[2018-02-26] MEDS: Budesonide-Formoterol 80/4.5 MCG 6.9 GM Inhaler INH SCH (08:19)
[2018-02-26 13:04] LABS: Calcium 7.9 mg/dL (8.5-10.1); Carbon Dioxide 23.8 meq/L (21.0-32.0); Potassium 5.8 meq/L (3.5-5.1)
[2018-02-26] MEDS ORDERED: Sodium Polystyrene Sulfonate/Sorbitol Liq 15 GM/60 ML UDC PO ONE (15:38)
--- NOTE | 2018-02-26 16:13 | P.PNIM ---
Subjective Interval history: She actually says she is feeling better today. Reports shortness of breath improving. Says she would like to go home. Says that bilateral lower extremity edema is improving as well Patient's potassium found to be 5.8, creatinine increasing to 2.3. Physical Exam Vital signs: Vital Signs 02/25/18 19:02 02/25/18 19:03 02/25/18 20:00 Temperature 97.2 F L Pulse Rate 83 77 Respiratory Rate 22 20 Blood Pressure 116/55 L Pulse Oximetry 93 L 93 L 02/25/18 23:26 02/26/18 00:00 02/26/18 04:00 Temperature 96.7 F L 96.9 F L Pulse Rate 76 77 77 Respiratory Rate 18 20 20 Blood Pressure 139/61 158/69 H Pulse Oximetry 98 98 02/26/18 08:00 02/26/18 08:25 02/26/18 11:59 Temperature 96.5 F L 97.7 F Pulse Rate 71 72 Respiratory Rate 20 20 Blood Pressure 163/68 H 128/60 Pulse Oximetry 99 96 94 L Intake & Output 02/25/18 02/26/18 02/26/18 18:59 06:59 18:59 Intake Total 720 / 720 100 / 100 Output Total 300 / 300 Balance 420 / 420 100 / 100 Weight 104.5 kg Intake: Oral 720 / 720 100 / 100 Output: Urine 300 / 300 Other: # Voids 3 Narrative: GENERAL: Patient sitting up on edge of bed. Appears comfortable. SKIN: Warm and dry. HEAD: Normocephalic. EYES: No scleral icterus. No injection or drainage. NECK: Supple, trachea midline. No JVD. CARDIOVASCULAR: Regular rate and rhythm without murmurs, gallops, or rubs. RESPIRATORY: Breath sounds equal bilaterally. No accessory muscle use. GASTROINTESTINAL: Abdomen soft, non-tender, nondistended. MUSCULOSKELETAL: No cyanosis, +2 bilateral lower extremity edema. Minimal erythema. Weeping a little, appears to be improved from previous BACK: Nontender without obvious deformity. No CVA tenderness. GENERAL: 67-year-old female, more awake and alert, appearing older than the stated age. SKIN: Bilateral weeping wounds stasis dermatitis. Warm and dry. CARDIOVASCULAR: Regular rate and rhythm. RESPIRATORY: No accessory muscle use. Decreased breath sounds bilaterally. Scattered wheezing. Bibasilar Rales. GASTROINTESTINAL: Abdomen soft, obese, non-tender, nondistended. MUSCULOSKELETAL: Extremities without clubbing, cyanosis, or edema. No obvious deformities. NEUROLOGICAL: Awake and alert. No obvious cranial nerve deficits. Motor grossly within normal limits. Five out of 5 muscle strength in the arms and legs. Normal speech. PSYCHIATRIC: Appropriate mood and affect; insight and judgment normal. Results - Labs CBC & Chem 7: 02/23/18 19:14 02/26/18 12:16 Laboratory Results - last 24 hr 02/25/18 02/25/18 02/26/18 16:30 20:29 02:57 Sodium Potassium Chloride Carbon Dioxide Anion Gap BUN Creatinine Estimated GFR POC Glucose 248 H 289 H 258 H Random Glucose Calcium 02/26/18 02/26/18 02/26/18 07:20 11:02 12:16 Sodium 134 L Potassium 5.8 H Chloride 102 Carbon Dioxide 23.8 Anion Gap 8 BUN 69 H Creatinine 2.30 H Estimated GFR 21 L POC Glucose 181 H 143 H Random Glucose 137 H Calcium 7.9 L Assessment and Plan - Plan //Acute on chronic respiratory failure, resolving //COPD with exacerbation //CHF with preserved ejection fraction with exacerbation //Bilateral pulmonary edema Chest x-ray reviewed with significant pulmonary edema Patient started on IV Lasix received 80 mg IV in the emergency room continue Lasix 40 mg IV twice daily. Monitor urine output. Monitor kidney function closely while on diuretics. Had a recent echo Duo nebs, Solu-Medrol taper as tolerated IS, Acapella Follows with Dr. Pennington pulmonology as outpatient Restart home medications as appropriate -We will hold off on Lasix for now due to acute kidney injury. -Continue fluid restrictions. Continue current management otherwise. Continue to monitor closely. //Acute kidney injury on top of chronic kidney disease Creatinine 2.3 from previous baseline. -We will hold off on Lasix for now. //Hyperkalemia. 5.8 Kayexalate ordered. EKG ordered. Will recheck level tonight. //Bilateral leg wounds, consult wound care. //Hypertension. Monitor and adjust medications as needed //Diabetes mellitus. On insulin. Accu-Cheks. Restart home medications. ?Note to not restart Valium not and if works. According to E force patient is on Suboxone -Status appears stable. DVT prophylaxis heparin subq Discussed Condition With: patient, nurse Discharge Planning: Hopefully in the next few days.
[2018-02-26 16:38] VITALS: BP 150/69; PULSE 76; TEMP 96.7; O2SAT 97
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
--- NOTE | 2018-02-26 22:11 | ECG ---
Date Performed: 02/26/2018 Time Performed: 16:33:22 PTAGE: 67 years EKG: Sinus rhythm MARKED RIGHT AXIS DEVIATION ANTEROSEPTAL MYOCARDIAL INFARCTION ABNORMAL ECG PREVIOUS TRACING : 02/23/2018 19.18 Since the previous tracing, no significant change noted DOCTOR: Jose Fernandez Interpretating Date/Time 02/26/2018 22:10:40
== END 2018-02-26 18:22 | disposition left against medical advice (07) | DRG 291 ==
LOC: PHED 18:51 → PHEDA 20:36 → PH3 22:31
PROVIDERS: ADMIT Internal Medicine; ATTEND Internal Medicine
CPT/HCPCS: 36600; 71010; 71045; 76775; 80048; 80053; 82805; 82948; 82962; 83520; 83880; 84484; 85025; 90774; 90775; 93005; 94150; 94640; 94650; 94651; 94664; 94665; 94667; 96374; 96375; 97110; 97116; 97162; 99285; C8952; J1644; J1815; J1940; J2270; J2920; J7506; J7512